=== PATIENT | male | born 1955 | race Caucasian/White ===

== ENCOUNTER 2016-12-09 15:34 | Emergency (ER) | payer OTHER ==
--- NOTE | 2016-12-09 16:56 | RAD ---
INDICATION: Right hip pain. COMPARISON: There are no prior studies available for comparison. TECHNIQUE: An AP view of the pelvis and frontal and lateral views of the right hip were obtained. FINDINGS: The bones are in normal alignment. No fracture is seen. There is mild bilateral osteoarthritic change in the hips. There are several surgical clips in the right inguinal region. IMPRESSION: MILD BILATERAL OSTEOARTHRITIC CHANGE IN THE HIPS.
--- NOTE | 2016-12-09 17:25 | UC ---
Hip/Pelvis Pain - HPI Summary HPI Summary: 61 yo male slipped on gravel 4 days ago landed on right buttock very uncomfortable with going up stairs/lifting right leg - History Of Current Complaint Chief Complaint: UCLowerExtremity Stated Complaint: HIP INJURY FROM FALL Time Seen by Provider: 12/09/16 16:29 Onset/Duration: Sudden Onset Timing: Constant Severity Initially: Moderate Severity Currently: Mild Pain Intensity: 4 - worse when sitting/laying/lifting leg Pain Scale Used: 0-10 Numeric Location: Discrete At: Character Of Pain: Aching, Spasmodic, Stiffness Aggravating Factor(s): Movement, Weight Bearing Alleviating Factor(s): Rest Associated Signs And Symptoms: Positive: Negative - Allergies/Home Medications Allergies/Adverse Reactions: Allergies Allergy/AdvReac Type Severity Reaction Status Date / Time No Known Allergies Allergy Verified 12/09/16 16:00 PMH/Surg Hx/FS Hx/Imm Hx Previously Healthy: Yes Endocrine History Of: Reports: Diabetes - BORDERLINE DIET CONTROLLED Cardiovascular History Of: Reports: Hypertension Denies: Pacemaker/ICD, Congestive Heart Failure GI/ History Of: Denies: Renal Disease Psychological History Of: Reports: Anxiety - pre-med for MRI - Surgical History Surgical History: Yes Surgery Procedure, Year, and Place: 95' left shoulder totator cuff repair. Leif Knee repair. heart pfo closure/ablation. hx of metal injury to eyes - cleared in 2007 but unable to find xray report now. As long as pt reports no new injury since that exam, Dr Padilla cleared the patient from the previous MRI - Family History Known Family History: Positive: Hypertension, Diabetes - Social History Alcohol Use: Occasionally Substance Use Type: None Smoking Status (MU): Former Smoker - Immunization History Most Recent Influenza Vaccination: 2012 Most Recent Tetanus Shot: unk Most Recent Pneumonia Vaccination: none Review of Systems Constitutional: Negative Skin: Negative Eyes: Negative ENT: Negative Respiratory: Negative Cardiovascular: Negative Gastrointestinal: Negative Genitourinary: Negative Motor: Negative Neurovascular: Negative Musculoskeletal: Arthralgia, Myalgia Neurological: Negative Psychological: Negative All Other Systems Reviewed And Are Negative: Yes Physical Exam Triage Information Reviewed: Yes Appearance: Well-Appearing, No Pain Distress, Well-Nourished Vital Signs: Initial Vital Signs Temp 97.9 F 12/09/16 15:57 Pulse 82 12/09/16 15:57 Resp 18 12/09/16 15:57 BP 141/84 12/09/16 15:57 Pulse Ox 96 12/09/16 15:57 Eyes: Positive: Conjunctiva Clear ENT: Positive: Hearing grossly normal. Negative: Nasal congestion, Nasal drainage, Trismus, Muffled/hoarse voice Neck: Positive: Supple, Nontender Respiratory: Positive: Lungs clear, Normal breath sounds, No respiratory distress Cardiovascular: Positive: RRR, No Murmur, Pulses Normal Abdomen Description: Positive: Nontender, Soft Neurological Exam: Normal Neurological: Positive: Alert, Muscle Tone Normal Psychological Exam: Normal Skin Exam: Normal Hip Injury Course/Dx - Course Course Of Treatment: pelvis stable. no midline delphine back tenderness - Differential Dx/Diagnosis Provider Diagnoses: right buttock contusion Discharge - Discharge Plan Condition: Stable Disposition: HOME Prescriptions: Naproxen [Naproxen 500 MG TABS] 500 mg PO BID PRN #30 tab PRN Reason: Pain Patient Education Materials: Contusion in Adults (ED) Referrals: Bienvenido Meier MD [Primary Care Provider] - 1 Week Additional Instructions: ice twice daily recheck with your MD in 4-7 days if not better Images Front/Back of Body, Lg (Benson): 1 - tender
[2016-12-09 17:48] VITALS: BP 131/95
== END 2016-12-09 17:43 | disposition home or self-care (01) ==
LOC: UCEAST 15:34
DX: S30.0XXA Contusion of lower back and pelvis, initial encounter (principal); W01.0XXA Fall on same level from slipping, tripping and stumbling without subsequent striking against object, initial encounter; R73.03 Prediabetes; I10 Essential (primary) hypertension; F41.9 Anxiety disorder, unspecified; Z87.891 Personal history of nicotine dependence
CPT/HCPCS: 99212; G0463

== ENCOUNTER 2018-08-17 23:27 | Emergency (ER) | payer OTHER ==
[2018-08-17] MEDS ORDERED: NS 0.9% 1000 ML* 1,000 ML IV ONE (23:43)
[2018-08-17] MEDS ORDERED: EPINEPHRINE 1 MG/ML 1 ML VIAL IM ONE (23:44)
[2018-08-17] MEDS ORDERED: diPHENhydraMINE IV* 50 MG/ML 1 ml VIAL (BENADRYL) IV ONE (23:45)
[2018-08-17] MEDS ORDERED: methylPREDNISolone 125 MG* 2 ML VIAL IV ONE (23:45)
[2018-08-17] MEDS ORDERED: Albuterol 0.5% CONC NEB.SOL* 5 MG/ML 20 ml BOT INH ONE (23:46)
--- NOTE | 2018-08-17 23:46 | ED ---
Allergic Reaction/Systemic - HPI Summary HPI Summary: This patient is a 62 year [facility] by with a chief complaint of possible allergic reaction since 1 hour ago. Patient states that he was just sitting and watching TV. Suddenly, patient noticed itching inside his mouth, which radiated to his hands and then his feet. There is not visible rash, but there is redness from itching. Patient additionally notes that his lips and tongue may be swollen. Patient states he presents to the ED because he thought that his throat may be closing up. The pain is rated 2 /10 in severity. Symptoms aggravated by nothing. Symptoms alleviated by nothing. Patient additionally notes mild SOB. - History of Current Complaint Chief Complaint: EDAllergicReaction Time Seen by Provider: 08/17/18 23:36 Hx Obtained From: Patient Onset/Duration: Started hours ago, Still Present Timing: Constant Severity Currently: None Pain Intensity: 2 Pain Scale Used: 0-10 Numeric Location: Diffuse Character: Swelling Aggravating Factor(s): Nothing Alleviating Factor(s): Nothing Associated Signs And Symptoms: Positive: Other: - itching, SOB - Allergies/Home Medications Allergies/Adverse Reactions: Allergies Allergy/AdvReac Type Severity Reaction Status Date / Time No Known Allergies Allergy Verified 12/09/16 16:00 Home Medications: Home Medications celeCOXIB CAP* [CeleBREX CAP*] 200 mg PO DAILY 08/18/18 [History Confirmed 08/18] PMH/Surg Hx/FS Hx/Imm Hx Previously Healthy: No Endocrine/Hematology History: Reports: Hx Diabetes - BORDERLINE DIET CONTROLLED Cardiovascular History: Reports: Hx Coronary Artery Disease, Hx Hypertension Denies: Hx Congestive Heart Failure, Hx Pacemaker/ICD History: Denies: Hx Renal Disease Musculoskeletal History: Reports: Hx Arthritis, Hx Orthopedic Injury - left rotator cuff, shefali knee repair Sensory History: Reports: Hx Contacts or Glasses Denies: Hx Hearing Aid Opthamlomology History: Reports: Hx Contacts or Glasses Neurological History: Reports: Other Neuro Impairments/Disorders - Transient Global Amnesia 6yrs ago Psychiatric History: Reports: Hx Anxiety - pre-med for MRI Denies: Hx Panic Disorder - Surgical History Surgery Procedure, Year, and Place: left shoulder totator cuff repair. Shefali Knee repair. heart pfo closure/ablation. hx of metal injury to eyes - cleared in 2007 but unable to find xray report now. As long as pt reports no new injury since that exam, Dr Padilla cleared the patient from the previous MRI Infectious Disease History: No Infectious Disease History: Denies: Traveled Outside the [place] in Last 30 Days - Family History Known Family History: Positive: Hypertension, Diabetes - Social History Lives: With Family Alcohol Use: Occasionally Hx Substance Use: No Substance Use Type: Reports: None Hx Tobacco Use: Yes Smoking Status (MU): Former Smoker Review of Systems Negative: Fever Positive: Shortness Of Breath Positive: Other - Itching, swelling All Other Systems Reviewed And Are Negative: Yes Physical Exam - Summary Physical Exam Summary: Appearance: Well-appearing, Well-nourished, lying in bed comfortably Skin: Warm, dry, no obvious rash, scattered itchiness Eyes: sclera anicteric, no conjunctival pallor ENT: mucous membranes moist, pharynx appears normal, Symmetric swelling of tongue and lips Neck: Supple, nontender Respiratory: Mild wheezing, chest tightness Cardiovascular: Normal S1, S2. No murmurs. Normal distal pulses in tibial and radial bilaterally. Abdomen: Soft, nontender, normal active bowel sounds present Musculoskeletal: Normal, Strength/ROM Intact Neurological: A&Ox3, awake and alert, mentation is normal, speech is fluent and appropriate Psychiatric: affect is normal, does not appear anxious or depressed Triage Information Reviewed: Yes Vital Signs On Initial Exam: Initial Vitals Temp Pulse Resp BP Pulse Ox 98 F 89 20 177/94 98 08/17/18 23:29 08/17/18 23:29 08/17/18 23:29 08/17/18 23:29 08/17/18 23:29 Vital Signs Reviewed: Yes Diagnostics - Vital Signs Vital Signs Temp Pulse Resp BP Pulse Ox 08/17/18 23:29 98 F 89 20 177/94 98 - Laboratory Result Diagrams: 08/17/18 23:53 08/17/18 23:53 Lab Statement: Any lab studies that have been ordered have been reviewed, and results considered in the medical decision making process. - Radiology CXR Radiology Interpretation Completed By: ED Physician Summary of Radiographic Findings: CXR reveals No acute disease. ED physician has reviewed this radiology report. - EKG 2353 Cardiac Rate: NL EKG Rhythm: Sinus Rhythm - 86 BPM Summary of EKG Findings: An EKG, taken 2353, reveals NSR (86 BPM), P waves, QRS complex, and T waves are within normal limits, T waves and intervals are normal , no ischemic changes. This is a normal EKG. Re-Evaluation - Re-Evaluation First Eval Re-Evaluation Time: 00:38 Change: Improved Comment: Wheezing and pruritus has resolved, but patient feels somewhat anxious and fidgety Allergic Reaction Course/Dx - Course Assessment/Plan: This patient is a 62 year old male presenting to [facility] accompanied by with a chief complaint of possible allergic reaction since 1 hour ago. Patient states that he was just sitting and watching TV. Suddenly, patient noticed itching inside his mouth, which radiated to his hands and then his feet. There is not visible rash, but there is redness from itching. Patient additionally notes that his lips and tongue may be swollen. Patient states he presents to the ED because he thought that his throat may be closing up. An EKG , taken 2353, reveals NSR (86 BPM), P waves, QRS complex, and T waves are within normal limits, T waves and intervals are normal, no ischemic changes. This is a normal EKG. CXR reveals No acute disease. ED physician has reviewed this radiology report. Bloodwork Obtained. In the ED course the patient was given albuterol, bendryl, epinephrine, Ativan, solu-medrol, NS 0.9% IV bolus. Patient will be discharged with a dx of anaphylaxis. Patient is advised to follow up with PCP in 3 days.The patient is agreeable with this plan. - Diagnoses Provider Diagnoses: Anaphylaxis Discharge - Sign-Out/Discharge Documenting (check all that apply): Patient Departure - Discharge Plan Condition: Improved Disposition: HOME Prescriptions: EPINEPHrine [Epipen 2-Isidro] 0.3 mg IM ONCE PRN #1 inj PRN Reason: Allergy Symptoms predniSONE [Prednisone 20 MG TAB] 40 mg PO DAILY 5 Days #10 tablet Patient Education Materials: Anaphylaxis (ED) Referrals: Bienvenido Meier MD [Primary Care Provider] - Additional Instructions: Followup with your doctor or an compensation specialist is important as you may need further testing to confirm my suspicion that the celebrex precipitated tonight' s reaction. In the meantime you should avoid celebrex and any medication in that family, including motrin and naprosyn. Take the prednisone for the next 5 days, and get benadryl to take if the itching comes back. If you develop trouble breathing again, administer the epinephrine and come right to the hospital or call 911 for an ambulance. - Attestation Statements Document Initiated by Keira: Yes Documenting Scribe: Tiny Munson Provider For Whom Kiera is Documenting (Include Credential): Barrett Lama MD Scribe Attestation: Tiny Thurston, scribed for Barrett Lama MD on 08/18/18 at 0458. Status of Scribe Document: Ready
[2018-08-17 23:59] LABS: ABS Basophils 0 10^3/ul (0-0.2); ABS Eosinophils 0.1 10^3/ul (0-0.6); ABS Lymphocytes 2.4 10^3/ul (1.0-4.8); ABS Monocytes 0.4 10^3/ul (0-0.8); ABS Neutrophils 3.3 10^3/ul (1.5-7.7); ABS Nucleated RBC 0 10^3/ul; Eosinophil % 1.6 %; Hematocrit 42 % (42-52); Hemoglobin 14.4 g/dl (14.0-18.0); Mean Corpuscular HGB Conc 35 g/dl (31-36); Mean Corpuscular Hemoglobin 30 pg (27-31); Mean Corpuscular Volume 85 fL (80-94); Mean Platelet Volume 7.2 fL (7.4-10.4); Nucleated Red Blood Cells % 0.1; Platelet Count 285 10^3/ul (150-450); Red Cell Distribution Width 14 % (10.5-15); White Blood Count 6.2 10^3/ul (3.5-10.8)
[2018-08-18] MEDS ORDERED: Albuterol/Ipratropium NEB.SOL* Albuterol 2.5 MG/Ipratropium 0.5 MG 3 ML ONE (00:04)
[2018-08-18] MEDS ORDERED: Albuterol/Ipratropium NEB.SOL* Albuterol 2.5 MG/Ipratropium 0.5 MG 3 ML INH ONE (00:11)
[2018-08-18 00:22] LABS: Albumin 3.9 g/dL (3.2-5.2); Albumin/Globulin Ratio 1.4 (1-3); BUN/Creatinine Ratio 16.5 (8-20); Calcium 9.4 mg/dL (8.6-10.3); EGFR Non-African American 64.2 (>60); Globulin 2.8 g/dL (2-4); Total Bilirubin 0.4 mg/dL (0.2-1.0); Total Protein 6.7 g/dL (6.4-8.9)
[2018-08-18] MEDS ORDERED: LORazepam INJ* 2 MG/ML 1 ML VIAL IV PUSH ONE (00:37)
[2018-08-18 05:06] VITALS: BP 119/58
== END 2018-08-18 05:04 | disposition home or self-care (01) ==
LOC: ED 23:27
DX: T78.2XXA Anaphylactic shock, unspecified, initial encounter (principal); R06.02 Shortness of breath; Z87.891 Personal history of nicotine dependence; I25.10 Atherosclerotic heart disease of native coronary artery without angina pectoris; I10 Essential (primary) hypertension
CPT/HCPCS: 36415; 71045; 80053; 83605; 84484; 85025; 93005; 96361; 96372; 96374; 96375; 99284; A9270-GY; J1200; J2060; J2930

== ENCOUNTER 2019-10-09 15:42 | Emergency (ER) | payer MEDICARE, OTHER ==
[2019-10-09 16:02] VITALS: BP 154/92
--- NOTE | 2019-10-09 16:07 | UC ---
Ear Complaint HPI - HPI Summary HPI Summary: 64 y/o male presents to the urgent care accompany by daughter c/o sinus congestion, clear nasal discharge body aches, low grade fever for the past 2 days. This morning, he developed left ear pain and pressure w/ decrease hearing. He states yesterday he though he had fever of 106F, But on the way to the ER he realized his thermometer was not working and his temp was only 101F. He took Tylenol PO and temp decrease. Pt states ear pain is 8/10. Pt denies dizziness, LINDO, SOB, chest pain,abdominal pain, N/V/d. - History of Current Complaint Chief Complaint: UCEar Stated Complaint: EAR COMPLAINT Time Seen by Provider: 10/09/19 16:06 Hx Obtained From: Patient Onset/Duration: Gradual Onset, Lasting Days - 2 days nasal congestion, Still Present, Worse Since - today w/ left ear pain Severity Initially: Mild Severity Currently: Moderate Pain Intensity: 8 - left ear pain Pain Scale Used: 0-10 Numeric Alleviating Factors: OTC Meds Associated Signs/Symptoms: Positive: URI Symptoms - Allergies/Home Medications Allergies/Adverse Reactions: Allergies Allergy/AdvReac Type Severity Reaction Status Date / Time gemfibrozil Allergy Anaphylatic Verified 10/09/19 16:02 Shock Home Medications: Home Medications Acetaminophen [Tylenol] 2 tab PO ONCE PRN 10/09/19 [History Confirmed 10/09/19] Fenofibrate Nanocrystallized [Tricor] 145 mg PO DAILY 10/09/19 [History Confirmed 10/09/19] Ibuprofen TAB* [Advil TAB*] 400 mg PO Q6H PRN 10/09/19 [History Confirmed ] PMH/Surg Hx/FS Hx/Imm Hx Previously Healthy: Yes Endocrine History: Dyslipidemia Cardiovascular History: Hypertension, Atrial Fibrillation GI/ History: Gastroesophageal Reflux - Surgical History Surgical History: Yes Surgery Procedure, Year, and Place: left shoulder Rotator cuff repair VASECTOMY. Leif Knee repair. heart pfo closure/ablation 2004. hx of metal injury to eyes - cleared in 2007 but unable to find xray report now. As long as pt reports no new injury since that exam, Dr Padilla cleared the patient from the previous MRI - Family History Known Family History: Positive: Hypertension, Diabetes - Social History Occupation: Retired Lives: With Family Alcohol Use: Rare Substance Use Type: None Smoking Status (MU): Former Smoker When Did the Patient Quit Smoking/Using Tobacco: 40+ years ago - Immunization History Most Recent Influenza Vaccination: 2013 Most Recent Tetanus Shot: unk Most Recent Pneumonia Vaccination: none Review of Systems All Other Systems Reviewed And Are Negative: Yes Constitutional: Positive: Fever, Chills, Other - body aches Skin: Positive: Negative Eyes: Positive: Negative ENT: Positive: Sore Throat, Ear Ache - left ear pain, Nasal Discharge - clear, Sinus Congestion, Other - moderate PND Respiratory: Positive: Cough - dry Cardiovascular: Positive: Negative Gastrointestinal: Positive: Negative Genitourinary: Positive: Negative Motor: Positive: Negative Neurovascular: Positive: Negative Musculoskeletal: Positive: Myalgia Neurological: Positive: Negative Psychological: Positive: Negative Is Patient Immunocompromised?: No Physical Exam - Summary Physical Exam Summary: VITAL SIGNS: Reviewed. GENERAL: Patient is a well developed and nourished obese male who is sitting comfortably in the examining table. Patient is not in any acute respiratory distress. HEAD AND FACE: No signs of trauma. No ecchymosis, hematomas or skull depressions. No sinus tenderness. EYES: PERRLA, EOMI x 2, No injected conjunctiva, no nystagmus. No photophobia. EARS: Hearing grossly intact. Left external ear canal impacted cerumen, unable to visualize LF TM, RT external ear canal clear, RT TM WNL. MOUTH: Positive pharynx with mild erythema, no exudates, No B/L tonsillar enlargement , no exudate. Uvula in midline. edematous nasal mucosa w/ clear nasal discharge, clear PND NECK: Supple, trachea is midline, Positive anterior cervical lymphadenopathy, no JVD, no carotid bruit, no c-spine tenderness, neck with full ROM. No meningeal signs, no Kernig's or brudzinskis signs. CHEST: Symmetric, no tenderness at palpation LUNGS: Clear to auscultation bilaterally. No wheezing or crackles. CVS: Regular rate and rhythm, S1 and S2 present, no murmurs or gallops appreciated. ABDOMEN: Soft, non-tender. No signs of distention. No rebound no guarding, and no masses palpated. Bowel sounds are normal. EXTREMITIES: FROM in all major joints, no edema, no cyanosis or clubbing. NEURO: Alert and oriented x 3. No acute neurological deficits. Pt follows commands. SKIN: Dry and warm Triage Information Reviewed: Yes Vital Signs: Initial Vital Signs Temp 98.2 F 10/09/19 15:57 Pulse 72 10/09/19 15:57 Resp 16 10/09/19 15:57 BP 154/92 10/09/19 15:57 Pulse Ox 99 10/09/19 15:57 Ear Complaint Course/Dx - Course Course Of Treatment: 64 y/o male presents to the urgent care accompany by daughter c/o sinus congestion, clear nasal discharge body aches, low grade fever for the past 2 days. This morning, he developed left ear pain and pressure w/ decrease hearing. He states yesterday he though he had fever of 106F, But on the way to the ER he realized his thermometer was not working and his temp was only 101F. He took Tylenol PO and temp decrease. Pt states ear pain is 8/10. Pt denies dizziness, LINDO, SOB, chest pain,abdominal pain, N/V/d. Hx obtained. Pt w/ left external ear canal impacted w/ cerumen and left anterior cervical and preauricular lymphadenopathy on examination. Rapid Influenza A&B: negative. Left ear irrigation ordered. Irrigation performed by Nurse. Pt tolerated well procedure w/o any adverse effect. Left external w/ erythema and yellowish purulent discharge, LF TM injected w/ erythema, no light reflex, no perforation. Pt will be Tx for Otitis externa and Media. Pt Rx Amoxicillin PO and Cortisporin otic drops. Advised to continue w/ Advil PO for alleviate otalgia. Pt advised if not improvement of symptoms in 2-3 days to return to the clinic or f/u w/ her PCP for further treatment.Pt's BP is elevated today advised to decrease salt in diet, monitor BP and f/u with PCP if BP continues to be elevated for further management. Pt understood and agreed w/ plan of care. - Differential Dx/Diagnosis Differential Diagnosis/HQI/PQRI: Cerumen Impaction, Otitis Externa, Otitis Media , Perforated TM, Pharyngitis, URI, Other - influenza Provider Diagnosis: Left otitis media, Left otitis externa, Uncontrolled hypertension Discharge ED - Sign-Out/Discharge Documenting (check all that apply): Patient Departure - d/c home All imaging exams completed and their final reports reviewed: No Studies - Discharge Plan Condition: Stable Disposition: HOME Prescriptions: Amoxicillin PO (*) [Amoxicillin 875 MG (*)] 875 mg PO BID #20 tab Neomyc/Polym/HC 1% OTIC SUSP* [Cortisporin Otic Susp 1%*] 4 drop LEFT EAR TID # 1 btl Patient Education Materials: Ear Infection (ED) Referrals: Bienvenido Meier MD [Primary Care Provider] - 3 Days Additional Instructions: 1- Please take the full course of the antibiotic to avoid resistance.Take yogurts w/ probiotics or Culturelle to protect your GI system 2-Please take ibuprofen PO q6-8hrs prn as instructed after meals to alleviate pain and swelling. Increase fluid intake, eat well, rest and avoid strenuous exercise 3- Please apply Cortisporin otic drops as directed to alleviate left otitis externa 4-If symptoms do not improve or worsen please return to the urgent care or f/u with your PCP for further evaluation and treatment. 5- Rapid influenza A&B: negative. 6- Your BP is elevated today advised to decrease salt in diet, monitor BP and f/ u with PCP in 3 days for further management. - Billing Disposition and Condition Condition: STABLE Disposition: Home
[2019-10-09 16:36] LABS: Influenza A Molecular Negative (Negative); Influenza B Molecular Negative (Negative)
== END 2019-10-09 17:00 | disposition home or self-care (01) ==
LOC: UCEAST 15:42
DX: H66.92 Otitis media, unspecified, left ear (principal); H60.92 Unspecified otitis externa, left ear; I10 Essential (primary) hypertension; J02.9 Acute pharyngitis, unspecified; M79.10 Myalgia, unspecified site; E78.5 Hyperlipidemia, unspecified; K21.9 Gastro-esophageal reflux disease without esophagitis; Z79.82 Long term (current) use of aspirin; Z79.899 Other long term (current) drug therapy; Z88.8 Allergy status to other drugs, medicaments and biological substances; Z87.891 Personal history of nicotine dependence
CPT/HCPCS: 99213; G0463

== ENCOUNTER 2019-10-11 07:27 | Emergency (ER) | payer MEDICARE, OTHER ==
[2019-10-11] MEDS ORDERED: Meclizine TAB* 12.5 MG PO ONE (07:55)
[2019-10-11 08:18] LABS: ABS Basophils 0.1 10^3/ul (0-0.2); ABS Eosinophils 0.1 10^3/ul (0-0.6); ABS Lymphocytes 1.4 10^3/ul (1.0-4.8); ABS Monocytes 1.1 10^3/ul (0-0.8); ABS Neutrophils 6.9 10^3/ul (1.5-7.7); Eosinophil % 0.9 %; Hematocrit 38 % (42-52); Hemoglobin 13.4 g/dL (14.0-18.0); Lymphocyte % 14.6 %; Mean Corpuscular HGB Conc 36 g/dL (31-36); Mean Corpuscular Hemoglobin 30 pg (27-31); Mean Corpuscular Volume 85 fL (80-94); Mean Platelet Volume 7.7 fL (7.4-10.4); Nucleated Red Blood Cells % 0.1; Platelet Count 194 10^3/uL (150-450); Red Blood Count 4.47 10^6 /uL (4.18-5.48); Red Cell Distribution Width 14 % (10-15); White Blood Count 9.4 10^3/uL (3.5-10.8)
[2019-10-11 08:36] LABS: Albumin 3.8 g/dL (3.2-5.2); Albumin/Globulin Ratio 1.3 (1-3); BUN/Creatinine Ratio 18.1 (8-20); Calcium 8.9 mg/dL (8.6-10.3); EGFR African American 97.5 (>60); EGFR Non-African American 80.5 (>60); Potassium 3.6 mmol/L (3.5-5.0); Total Bilirubin 0.5 mg/dL (0.2-1.0); Total Protein 6.8 g/dL (6.4-8.9); Troponin I 0.01 ng/mL (<0.03)
[2019-10-11 09:41] VITALS: BP 151/104
--- NOTE | 2019-10-11 10:17 | ED ---
Throat Pain/Nasal Congestion - HPI Summary HPI Summary: This patient is a 64-year-old otherwise healthy male recently diagnosed with left ear infection presenting to the ED with acute onset dizziness while driving today. No history of dizziness. Denies any cardiac history. He states several days ago his left ear started hurting. He went to urgent care where he was diagnosed with left sided otitis externa. He does endorse drainage from the area which is red and yellow tinted serous fluid. 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 He also had nausea without vomiting. He states he was recently worked up for a gallbladder surgery and had EKG, stress test and echo completed last week. Patient has been denying chest pain or shortness of breath. He denies any abdominal pain at this time. No urinary symptoms or back pain. He denies any headache. He states intermittently when he stands up too quickly he will get only slightly dizzy, however he is on a beta sergo. He states this definitely felt different than his previous mild dizziness episodes. On arrival into the ED, patient has felt much improved. He is endorsing his dizziness at a 5/10, previously is 10/10 prior to arrival. Symptoms are worse with head movement from side to side. No worsening dizziness with flexion and extension of the neck. No neck pain bilaterally. No visual changes. No confusion or memory loss. - History of Current Complaint Chief Complaint: EDDizziness Time Seen by Provider: 10/11/19 07:45 Hx Obtained From: Patient Onset/Duration: Sudden Onset Severity: Severe Associated Signs And Symptoms: Positive: Negative - Epiglottits Risk Factors Epiglottis Risk Factors: Negative - Allergies/Home Medications Allergies/Adverse Reactions: Allergies Allergy/AdvReac Type Severity Reaction Status Date / Time gemfibrozil Allergy Anaphylatic Verified 10/11/19 07:46 Shock PMH/Surg Hx/FS Hx/Imm Hx Previously Healthy: Yes Endocrine/Hematology History: Denies: Hx Diabetes, Hx Thyroid Disease Cardiovascular History: Reports: Hx Coronary Artery Disease, Hx Hypercholesterolemia, Hx Hypertension Denies: Hx Congestive Heart Failure, Hx Pacemaker/ICD Respiratory History: Denies: Hx Asthma, Hx Chronic Obstructive Pulmonary Disease (COPD) GI History: Denies: Hx Ulcer History: Denies: Hx Renal Disease Musculoskeletal History: Reports: Hx Arthritis, Hx Orthopedic Injury - left rotator cuff, shefali knee repair Sensory History: Reports: Hx Contacts or Glasses Denies: Hx Hearing Aid Opthamlomology History: Reports: Hx Contacts or Glasses Neurological History: Reports: Other Neuro Impairments/Disorders - Transient Global Amnesia 6yrs ago Psychiatric History: Reports: Hx Anxiety - pre-med for MRI Denies: Hx Panic Disorder - Surgical History Surgery Procedure, Year, and Place: ' left shoulder Rotator cuff repair VASECTOMY. Shefali Knee repair. heart pfo closure/ablation 2004. hx of metal injury to eyes - cleared in 2007 but unable to find xray report now. As long as pt reports no new injury since that exam, Dr Padilla cleared the patient from the previous MRI - Immunization History Hx Pertussis Vaccination: No Immunizations Up to Date: Yes Infectious Disease History: No Infectious Disease History: Denies: Hx Hepatitis, Hx Human Immunodeficiency Virus (HIV), Traveled Outside the [place] in Last 30 Days - Family History Known Family History: Positive: Hypertension, Diabetes - Social History Occupation: Unemployed Lives: With Family Alcohol Use: Rare Hx Substance Use: No Substance Use Type: Reports: None Hx Tobacco Use: Yes Smoking Status (MU): Former Smoker Review of Systems Negative: Fever, Chills, Fatigue, Skin Diaphoresis Negative: Blurred Vision, Diplopia, Drainage, Erythema Negative: Palpitations, Chest Pain Negative: Shortness Of Breath, Cough Genitourinary: Negative Positive: see HPI Negative: Rash, Bruising Neurological: Other - dizziness Negative: Headache, Weakness, Paresthesia, Syncope Negative: Anxious, Depressed All Other Systems Reviewed And Are Negative: Yes Physical Exam Triage Information Reviewed: Yes Vital Signs On Initial Exam: Initial Vitals Temp Pulse Resp BP Pulse Ox 97.9 F 79 16 169/113 95 10/11/19 07:28 10/11/19 07:28 10/11/19 07:28 10/11/19 07:28 10/11/19 07:28 Vital Signs Reviewed: Yes Appearance: Positive: Well-Appearing, Well-Nourished Skin: Positive: Warm, Skin Color Reflects Adequate Perfusion Head/Face: Positive: Normal Head/Face Inspection Eyes: Positive: EOMI, UMM, Conjunctiva Clear ENT: Positive: Pharynx normal, TM bulging, TM red - with drainage, Other - decreased hearing in the L ear. Negative: Pharyngeal erythema, Nasal congestion , Nasal drainage, Tonsillar swelling, Tonsillar exudate, Dental tenderness, Sinus tenderness, Uvula midline Neck: Positive: Supple, No Lymphadenopathy Respiratory/Lung Sounds: Positive: Clear to Auscultation, Breath Sounds Present Cardiovascular: Positive: RRR, Pulses are Symmetrical in both Upper and Lower Extremities. Negative: Leg Edema Left, Leg Edema Right Musculoskeletal: Positive: Normal, Strength/ROM Intact Neurological: Positive: Speech Normal Psychiatric: Positive: Normal, Affect/Mood Appropriate AVPU Assessment: Alert - Mane Coma Scale Best Eye Response: 4 - Spontaneous Best Motor Response: 6 - Obeys Commands Best Verbal Response: 5 - Oriented Coma Scale Total: 15 Procedures - Sedation Patient Received Moderate/Deep Sedation with Procedure: No Diagnostics - Vital Signs Vital Signs Temp Pulse Resp BP Pulse Ox 10/11/19 09:40 97.3 F 75 14 151/104 100 10/11/19 09:14 73 15 156/90 99 10/11/19 09:00 77 15 98 10/11/19 08:44 74 15 139/92 95 10/11/19 08:14 72 20 137/91 95 10/11/19 08:00 17 10/11/19 07:43 71 14 171/99 94 10/11/19 07:28 97.9 F 79 16 169/113 95 - Laboratory Lab Results: Lab Results 10/11/19 10/11/19 Range/Units 08:05 08:05 WBC 9.4 (3.5-10.8) 10^3/uL RBC 4.47 (4.18-5.48) 10^6 /uL Hgb 13.4 L (14.0-18.0) g/dL Hct 38 L (42-52) % MCV 85 (80-94) fL MCH 30 (27-31) pg MCHC 36 (31-36) g/dL RDW 14 (10-15) % Plt Count 194 (150-450) 10^3/uL MPV 7.7 (7.4-10.4) fL Neut % (Auto) 72.5 % Lymph % (Auto) 14.6 % Stanley % (Auto) 11.4 % Eos % (Auto) 0.9 % Baso % (Auto) 0.6 % Absolute Neuts (auto) 6.9 (1.5-7.7) 10^3/ul Absolute Lymphs (auto) 1.4 (1.0-4.8) 10^3/ul Absolute Monos (auto) 1.1 H (0-0.8) 10^3/ul Absolute Eos (auto) 0.1 (0-0.6) 10^3/ul Absolute Basos (auto) 0.1 (0-0.2) 10^3/ul Absolute Nucleated RBC 0.0 10^3/ul Nucleated RBC % 0.1 Sodium 135 (135-145) mmol/L Potassium 3.6 (3.5-5.0) mmol/L Chloride 103 (101-111) mmol/L Carbon Dioxide 24 (22-32) mmol/L Anion Gap 8 (2-11) mmol/L BUN 17 (6-24) mg/dL Creatinine 0.94 (0.67-1.17) mg/dL Est GFR ( Amer) 97.5 (>60) Est GFR (Non-Af Amer) 80.5 (>60) BUN/Creatinine Ratio 18.1 (8-20) Glucose 224 H (70-100) mg/dL Calcium 8.9 (8.6-10.3) mg/dL Total Bilirubin 0.50 (0.2-1.0) mg/dL AST 20 (13-39) U/L ALT 31 (7-52) U/L Alkaline Phosphatase 56 (34-104) U/L Troponin I 0.01 (<0.03) ng/mL Total Protein 6.8 (6.4-8.9) g/dL Albumin 3.8 (3.2-5.2) g/dL Globulin 3.0 (2-4) g/dL Albumin/Globulin Ratio 1.3 (1-3) Result Diagrams: 10/11/19 08:05 10/11/19 08:05 Lab Statement: Any lab studies that have been ordered have been reviewed, and results considered in the medical decision making process. EENT Course/Dx - Course Course Of Treatment: Patient is evaluated for dizziness which occurred this morning as well as left sided ear pain/infection which was diagnosed 2 days ago. He is currently on amoxicillin as well as eardrops for this. He continues to have drainage from the ear. Patient appears well on arrival. Denies any dizziness currently. EKG obtained immediately on arrival. NSR. Movement of his head [id number] and ftsrm-hl-avqj illicits dizziness. No worsening symptoms with flexion or extension of the neck. No carotid bruits noted. No neck pain. No posterior cervical spine tenderness. No headache currently. No nystagmus noted. Neuro exam WNL. Patient was given meclizine with good improvement. Currently rating his dizziness as a 2/10, only with movement. Patient ambulating well. EOMI/PERRLA. Lungs CTA, RRR. There is serosanguineous fluid drainage from the left ear consistent with an otitis externa. Labs obtained are WNL. Vital signs are stable and patient remained afebrile. As patient's symptoms have improved, he will be discharged with dizziness, likely secondary to left-sided ear infection/fluid buildup. He will remain on his amoxicillin. He is encouraged to follow up with his PCP tomorrow for a recheck. - Differential Diagnoses Differential Diagnoses: Other - era infection, otitis media, dizziness, Mnire' s, labyrinthitis - Diagnoses Provider Diagnoses: Otitis externa Discharge ED - Sign-Out/Discharge Documenting (check all that apply): Patient Departure - Discharge Plan Condition: Stable Disposition: HOME Prescriptions: Meclizine TAB* [Antivert 12.5 TAB*] 25 mg PO TID PRN #20 tab MDD 3 PRN Reason: Dizziness Ondansetron ODT TAB* [Zofran 4 MG Odt TAB*] 4 mg PO Q6H PRN #12 tab.odt MDD 4 PRN Reason: Nausea Patient Education Materials: Dizziness (ED) Referrals: Bienvenido Meier MD [Primary Care Provider] - Additional Instructions: Please follow up with Dr Meier Please call surgeons office today as well for a follow up/information Continue your antibiotics as prescribed - Billing Disposition and Condition Condition: STABLE Disposition: Home
== END 2019-10-11 09:40 | disposition home or self-care (01) ==
LOC: ED 07:27
DX: H60.92 Unspecified otitis externa, left ear (principal); I25.10 Atherosclerotic heart disease of native coronary artery without angina pectoris; E78.00 Pure hypercholesterolemia, unspecified; I10 Essential (primary) hypertension; Z98.52 Vasectomy status; Z87.891 Personal history of nicotine dependence; Z88.8 Allergy status to other drugs, medicaments and biological substances
CPT/HCPCS: 36415; 80053; 84484; 85025; 93005; 99283; A9270-GY

== ENCOUNTER 2019-10-30 09:51 | Emergency (ER) | payer MEDICARE, OTHER ==
--- OUTSIDE RECORDS SUMMARY | 2019-10-30 10:19 | XMS REPORT | Continuity of Care Document ---
:1955 External Reference #:[id number] Author Name MARCELINO Lehman (transmitted by agent of provider Victor Manuel Marie) Address [address] [place] [address] [address] [place] [address] Problems Description No Information Available Social History Type Date Description Comments Sex Unknown ETOH Use Rarely consumes beer Tobacco Use Start: Unknown End: Patient is a former quit over 40 yrs Unknown smoker ago Recreational Drug Use Denies Drug Use Smoking Status Reviewed: 10/21/19 Patient is a former quit over 40 yrs smoker ago Exercise Type/Frequency Exercises regularly Reported walks 1 mile daily Allergies, Adverse Reactions, Alerts Active Allergies Reaction Severity Comments Date Gemfibrozil cough, palpitations swelling 12/14/2009 Inactive Allergies NKDA 10/05/2004 Medications Active Medications SIG Qnty Indications Ordering Provider Date [place] K80.20 Paco Lamar 10/21/2019 5-325mg MARCELINO Walters Tablets Lipitor one tab by mouth Alexis George, 10/11/2015 20mg every night at M.D. Tablets bedtime Aspirin 1 po qd 90units Alexis George, 09/11/2009 81mg M.D. Chewtabs Metoprolol Tartrate 1 tab po bid 60tabs Unknown 100mg Tablets Fenofibrate 1 tablet daily Unknown 145mg Omeprazole 1 capsule daily Unknown 40mg Losartan Potassium Take One Tablet Unknown By Mouth Every 25mg Tablets Day Prednisone taper as Unknown 20mg directed Tablets Fluticasone 2 sprays each Unknown Propionate nostril daily 50mcg/Act Suspension Medications Administered in Office Medication SIG Qnty Indications Ordering Provider Date Inj, Regadenoson, 0.1 MG Bairon Riley, DO [facility]ACC 06/19/2017 Injection Technetium TC 99M Bairon Raleigh Riley, DO [facility] 06/19/2017 Tetrofosmin, Per Unit Dose Up To 40 Millicuries Injection Immunizations Description No Information Available Vital Signs Date Vital Result Comment 10/21/2019 11:05am Height 68 inches 5'8" Weight 232.00 lb Heart Rate 66 /min BP Systolic Sitting 142 mmHg BP Diastolic Sitting 96 mmHg Respiratory Rate 16 /min Body Temperature 97.4 F BMI (Body Mass Index) 35.3 kg/m2 09/29/2019 8:52am Height 68 inches 5'8" Heart Rate 68 /min radial,regular BP Systolic Sitting 148 mmHg Ra,lg cuff BP Diastolic Sitting 108 mmHg Ra,lg cuff BP Systolic Standing 136 mmHg LA sitting, lg cuff BP Diastolic Standing 96 mmHg LA sitting, lg cuff BP Systolic Lying Down 136 mmHg LA sitting, reg cuff BP Diastolic Lying Down 92 mmHg LA sitting, reg cuff Results Description No Information Available Procedures Date Code Description Status 10/04/2019 55354 Treadmill Interp/Report Only Completed 10/04/2019 67864 Stress Test Supervsn W/Out I/R Completed 09/29/2019 92400 EKG Tracing & Interpretation Completed 09/29/2019 77451 EKG Tracing & Interpretation Completed 09/28/2019 22310 EKG Tracing & Interpretation Completed Medical Devices Description No Information Available Encounters Type Date Location Provider Dx Diagnosis Office Visit 09/29/2019 [facility] Alexis Hoover R94.31 Abnormal 2:00p Daisy George electrocardiogram [ECG] [EKG] I10 Essential (primary) hypertension Office Visit 09/28/2019 10:40a [facility] Alexis Hoover I10 Essential (primary) Daisy George hypertension Q21.1 Atrial septal defect E78.00 Pure hypercholesterolemia, unspecified R94.31 Abnormal electrocardiogram [ECG] [EKG] K80.20 Calculus of gallbladder w/o cholecystitis w/o obstruction Office Visit 09/27/2019 [facility] Prabhakar Guillen, K80.20 [facility] 8:30a [facility] gallbladder w/o [employer] cholecystitis w/o obstruction K44.9 Diaphragmatic hernia without obstruction or gangrene Assessments Date Code Description Provider 10/21/2019 K80.20 Calculus of gallbladder without MARCELINO Lehman cholecystitis without obstruction 10/21/2019 Z01.818 Encounter for other preprocedural MARCELINO Lehman examination 10/14/2019 K80.20 Calculus of gallbladder without Prabhakar Guillen MD, ROSE cholecystitis without obstruction 10/04/2019 R94.31 Abnormal electrocardiogram [ECG] [EKG] Tristian Whitlock M.D. 09/29/2019 R94.31 Abnormal electrocardiogram [ECG] [EKG] Alexis George M.D. 09/29/2019 I10 Essential (primary) hypertension Alexis George M.D. 09/29/2019 R94.31 Abnormal electrocardiogram [ECG] [EKG] Nurse Visit cc 09/29/2019 I10 Essential (primary) hypertension Nurse Visit cc 09/29/2019 E78.00 Pure hypercholesterolemia, unspecified Nurse Visit 09/29/2019 K80.20 Calculus of gallbladder without Nurse Visit cholecystitis without obstruction 09/28/2019 I10 Essential (primary) hypertension Alexis George M.D. 09/28/2019 Q21.1 Atrial septal defect Alexis George M.D. 09/28/2019 E78.00 Pure hypercholesterolemia, unspecified Alexis George M.D. 09/28/2019 R94.31 Abnormal electrocardiogram [ECG] [EKG] Alexis George M.D. 09/28/2019 K80.20 Calculus of gallbladder without Alexis George M.D. cholecystitis without obstruction 09/27/2019 K80.20 Calculus of gallbladder without Prabhakar Guillen MD, FACS cholecystitis without obstruction 09/27/2019 K44.9 Diaphragmatic hernia without obstruction Prabhakar Guillen MD, FACS or gangrene Plan of Treatment Future Appointment(s):11/04/2019 7:45 am - Prabhakar Guillen MD, FACS at [facility]11/11/2019 11:30 am - MARCELINO Lehman at [facility]10/21/2019 - Paco Walters, PAK80.20 Calculus of gallbladder without cholecystitis without obstructionNew Medication:[place] 5-325 mg -Z01.818 Encounter for other preprocedural examination Functional Status Description No Information Available Mental Status Description No Information Available Referrals Refer to Reason for Referral Status Appt Date Alexis George MD Closed 09/28/[address] [place] [address] [address] [place] [address] [phone]
--- OUTSIDE RECORDS SUMMARY | 2019-10-30 10:19 | XMS REPORT | Continuity of Care Document ---
:1955 External Reference #:[id number] Author Name DEMETRIUS Francisco Address [address] [place] [address] Care Team Providers Name Role Phone Gallo Melendez - Cardiovascular Disease Care Team Information Newspaper Inserter [phone] [facility] - Care Team Information Newspaper Inserter [phone] Gastroenterology Jon Mcneil DO - Gastroenterology Care Team Information Newspaper Inserter [phone] Problems Active Problems Provider Date Benign essential hypertension Bienvenido Meier M.D. Onset: 12/22/2006 Hyperlipidemia Bienvenido Meier M.D. Onset: 04/30/2007 Benign prostatic hypertrophy without outflow Bienvenido Meier M.D. Onset: 01/2007 obstruction Palpitations Bienvenido Meier M.D. Onset: 03/28/2011 Arthropathy Bienvenido Meier M.D. Onset: 01/16/2012 Atrial fibrillation Bienvenido Meier M.D. Onset: 07/16/2012 Blood chemistry abnormal Bienvenido Meier M.D. Onset: 07/16/2012 Type 2 diabetes mellitus Bienvenido Meier M.D. Onset: 08/03/2013 Gastroesophageal reflux disease Bienvenido Meier M.D. Onset: 11/04/2013 Benign neoplasm of skin Bienvenido Meier M.D. Onset: 11/04/2013 Generalized abdominal pain Bienvenido Meier M.D. Onset: 11/04/2013 Eruption Bienvenido Meier M.D. Onset: 01/06/2014 Essential hypertension Bienvenido Meier M.D. Onset: 09/21/2015 Conjunctivitis Bienvenido Meier M.D. Onset: 09/21/2015 Paroxysmal atrial fibrillation Bienvenido Meier M.D. Onset: 01/18/2016 Benign neoplasm of epididymis Bienvenido Meier M.D. Onset: 01/18/2016 Degenerative joint disease involving multiple Bienvenido Meier M.D. Onset: 10/2016 joints Bronchitis Bienvenido Meier M.D. Onset: 01/28/2017 Localized, primary osteoarthritis Bienvenido Meier M.D. Onset: 01/28/2017 Acute upper respiratory infection, unspecified Bienvenido Meier M.D. Onset: Hemorrhage of rectum and anus Bienvenido Meier M.D. Onset: 09/16/2017 Tick bite Bienvenido Meier M.D. Onset: 06/14/2019 Nonvenomous insect bite of upper arm without Bienvenido Meier M.D. Onset: infection Right upper quadrant pain Bienvenido Meier M.D. Onset: 07/16/2019 Cholecystitis Bienvenido Meier M.D. 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 METER TESTER 50mcg/Act Suspension Saline Nasal [place] 1-2 sprays twice 44ml 10/14/2019 daily each nostril Raman, FIELD MECH[employer]ICAL METER TESTER 0.65% Solution Medrol dose-pack as 1pack 10/14/2019 4mg Tablets instructed Raman, FIELD ME[employer]ICAL METER TESTER Losartan Potassium 1 by mouth every 90tabs I10 10/14/2019 day Raman, FIELD MECH[employer]ICAL METER TESTER 25mg Tablets Acyclovir apply to oral 15gm B00.89 10/14/2019 5% Ointment herpes outbreaks Raman, FIELD MECH[employer] METER TESTER three times a day as needed Metoprolol Tartrate take two tablets 120tabs Stephie 10/13/2018 by mouth twice a Raman, FIELD MECH[employer]ICAL METER TESTER 100mg Tablets day Atorvastatin Calcium Take One Tablet By 30tabs Bienvenido Meier, 08/10/2018 Mouth Every Day M.D. 20mg Tablets Nystatin/Triamcinolo Apply To Affected 30units R21 Bienvenido Meier, 2016 ne Acetonide Area(S) Twice M.D. Daily 281707-8.1Unit/GM-% Cream Omeprazole Take One Capsule 30caps K21.9 Bienvenido Meier, 10/03/2016 40mg By Mouth Every M.D. Capsules DR Morning as Needed Amoxicillin/Clavulan 1 by mouth twice a 6tabs Stephie ate Potassium day x 3 days Raman, FIELD MECH[employer]ICAL METER TESTER 875-125mg Tablets Fenofibrate Take One Tablet By 30tabs Bienvenido Meier, 145mg Mouth Every Day M.D. Tablets Aspirin 1 po qd Unknown 81mg History Medications Diazepam 1-2 patient every 5tabs Samm Urban, 09/15/2019 - 5mg Tablets 4 hours as needed M.D. 09/22/2019 Levofloxacin 1 by mouth every 10tabs Bienvenido Meier, 08/18/2019 - 500mg day for bronchitis M.D. 10/07/2019 Tablets Doxycycline Hyclate 1 by mouth twice a 14caps J20.9 [facility], 2018 - day x 7 days M.D. 08/18/2019 100mg Capsules Ventolin HFA 2 puffs every 4 16gm J20.9 [facility], 08/11/2019 - hours as needed M.D. 10/07/2019 108(90Base) mcg/Act Aerosol Tessalon Perles 1-2 tab by mouth 60caps J20.9 [facility], 08/11/2019 - 100mg every 6 hours as M.D. 10/07/2019 Capsules needed Amoxicillin 2 tab by mouth 42tabs J20.9 [facility], 08/11/2019 - 500mg three times a day M.D. 08/18/2019 Tablets x 1 week; Doxycycline Hyclate 2 by mouth once 4tabs Bienvenido Meier, 06/14/2019 - for deer tick bite M.Carmelita 07/16/2019 100mg Tablets Immunizations CPT Code Status Date Vaccine Lot # [id number] Given 10/07/2019 Pneumococcal Immunization [id number] Given 10/07/2019 Influenza vac quadrivalent preservative free 6 [id number] months and up [id number] Given 06/18/2018 Influenza Vac, Quadrivalent, Slit Virus, Im [id number] Given 05/08/2017 Influenza Vac, Quadrivalent, Slit Virus, Im [id number] 57089 Given 10/03/2016 Tdap Tetanus, W Pertussis [id number] Given 01/20/2007 Tetanus And Diptheria Adult Preservative Free >7Yrs Vital Signs Date Vital Result Comment 10/14/2019 9:35am BP Systolic 150 mmHg BP Diastolic 90 mmHg Heart Rate 68 /min Body Temperature 97.9 F Respiratory Rate 18 /min Weight 239.00 lb 10/07/2019 1:33pm BP Systolic 146 mmHg BP Diastolic 90 mmHg Heart Rate 68 /min Body Temperature 98.1 F Respiratory Rate 20 /min Height 67.5 inches 5'7.50" Weight 235.00 lb BMI (Body Mass Index) 36.3 kg/m2 Results Test Acquired Date Facility Test Result H/L Range Note CBC Auto Diff 10/11/2019 [facility] White Blood 9.4 10^3/uL Normal 3.5-10.8 Count Red Blood Count 4.47 10^6/uL Normal 4.18-5.48 Hemoglobin 13.4 g/dL Low 14.0-18.0 Hematocrit 38 % Low 42-52 Mean Corpuscular Volume 85 fL Normal 80-94 Mean Corpuscular Hemoglobin 30 pg Normal 27-31 Mean Corpuscular HGB Conc 36 g/dL Normal 31-36 Red Cell Distribution Width 14 % Normal 10-15 Platelet Count 194 10^3/uL Normal 150-450 Mean Platelet Volume 7.7 fL Normal 7.4-10.4 Abs Neutrophils 6.9 10^3/uL Normal 1.5-7.7 Abs Lymphocytes 1.4 10^3/uL Normal 1.0-4.8 Abs Monocytes 1.1 10^3/uL High 0-0.8 Abs Eosinophils 0.1 10^3/uL Normal 0-0.6 Abs Basophils 0.1 10^3/uL Normal 0-0.2 Abs Nucleated RBC 0.0 10^3/uL Granulocyte % 72.5 % Lymphocyte % 14.6 % Monocyte % 11.4 % Eosinophil % 0.9 % Basophil % 0.6 % Nucleated Red Blood Cells % 0.1 Comp Metabolic Panel 10/11/2019 [facility] Sodium 135 mmol/L Normal 135-145 Potassium 3.6 mmol/L Normal 3.5-5.0 Chloride 103 mmol/L Normal 101-111 Co2 Carbon Dioxide 24 mmol/L Normal 22-32 Anion Gap 8 mmol/L Normal 2-11 Glucose 224 mg/dL High 70-100 Blood Urea Nitrogen 17 mg/dL Normal 6-24 Creatinine 0.94 mg/dL Normal 0.67-1.17 BUN/Creatinine Ratio 18.1 Normal 8-20 Calcium 8.9 mg/dL Normal 8.6-10.3 Total Protein 6.8 g/dL Normal 6.4-8.9 Albumin 3.8 g/dL Normal 3.2-5.2 Globulin 3.0 g/dL Normal 2-4 Albumin/Globulin Ratio 1.3 Normal 1-3 Total Bilirubin 0.50 mg/dL Normal 0.2-1.0 Alkaline Phosphatase 56 U/L Normal 34-104 Alt 31 U/L Normal 7-52 Ast 20 U/L Normal 13-39 Egfr Non- 80.5 >60 Egfr 97.5 >60 1 Laboratory test finding 10/11/2019 [facility] Troponin-I (TnI) 0.01 ng/mL < 0.03 2 Rapid Influenza A & B 10/09/2019 [facility] Influenza A Molecular Negative Negative Molecular Influenza B Molecular Negative Negative 3 Ua - Non Micro (Fma) 10/07/2019 [facility] Appearance clear (607)- - Color yellow Glucose, Urine (a/[facility]/CTX) - Bilirubin - Ketones - SP Grav >= 1.030 Blood - PH 5.0 Protein - Urobil 0.2 Nitrite - Leukocytes ([facility]) - Laboratory test 09/24/2019 Deng Anna([facility]) PSA 0.9 ng/mL 0.0-4.0 finding Lipid Profile 09/24/2019 Deng Anna([facility]) Cholesterol 171 mg/dL 120- 200 Triglycerides 242 mg/dL High 30-200 HDL Cholesterol 38 mg/dL 30-70 LDL (Calculated) 85 CALC 0-129 VLDL Cholesterol 48 mg/dL 0-50 HDL Risk Factor 4.5 CALC High 0.0-4.4 CBC Electronic a 09/24/2019 Ish Anna([facility]) WBC 8.4 x10^3/UL 4.0- 10.0 RBC 5.25 x10^6/UL 3.93-6.00 HGB 15.3 g/dL 12.0-17.0 HCT 45 % 35-50 MCV 85.7 fL 80.0-95.0 MCH 29.1 pg 25.6-32.2 MCHC 34.0 g/dL 32.2-36.0 RDW-CV 12.8 % 11.6-14.4 PLT 258 x10^3/UL 163-400 MPV 9.2 fL Low 9.4-12.4 Maddie# 4.83 x10^3/UL 1.56-6.13 Lymph# 2.61 x10^3/UL 1.18-3.74 [place]# 0.76 x10^3/UL 0.24-0.82 Eos # 0.1 x10^3/UL 0.0-0.5 Baso # 0.03 x10^3/UL 0.01-0.08 Maddie% 57.5 % 34.0-70.0 Lymph % 31.1 % 20.0-52.0 [place]% 9.1 % 5.0-12.0 Eos% 1.7 % 0.7-7.0 Baso% 0.4 % 0.1-1.2 Comprehensive Metabolic 09/24/2019 Ish Castillo([facility]) Sodium 137 mEq/L 134-149 Prof Potassium 4.8 mEq/L 3.6-5.5 Chloride 98 mEq/L 94-112 Carbon Dioxide 25 mEq/L 21-32 Glucose 124 mg/dL High 70-105 4 BUN 21 mg/dL 6-26 Creatinine 1.0 mg/dL 0.6-1.4 BUN/Creat Ratio 21.0 CALC 8.0-36.0 Calcium 10.4 mg/dL 8.9-10.6 Total Protein 7.7 g/dL 6.4-8.3 Albumin 4.9 g/dL 3.8-5.5 Globulin 2.8 g/dL 2.0-4.8 A/G Ratio 1.8 CALC 0.6-2.3 Alk. Phosphatase 51 U/L 22-95 Alt (SGPT) 23 U/L 7-35 Ast (Sgot) 26 U/L 5-34 Total Bilirubin 0.6 mg/dL 0.2-1.3 GFR Non- >60 ml/min/1.73m^ >=60 GFR >60 ml/min/1.73m^ >=60 Laboratory test finding 09/08/2019 Deng Anna(a) BUN 15 mg/dL 6- 26 Creatinine 1.0 mg/dL 0.6-1.4 Comprehensive Metabolic 07/16/2019 Ish Anna(a) Sodium 140 mEq/L 134-149 Prof Potassium 5.1 mEq/L 3.6-5.5 Chloride 102 mEq/L 94-112 Carbon Dioxide 25 mEq/L 21-32 Glucose 122 mg/dL High 70-105 BUN 18 mg/dL 6-26 Creatinine 1.2 mg/dL 0.6-1.4 BUN/Creat Ratio 15.0 CALC 8.0-36.0 Calcium 9.8 mg/dL 8.6-10.2 Total Protein 8.3 g/dL 6.4-8.3 Albumin 5.3 g/dL 3.8-5.5 Globulin 3.0 g/dL 2.0-4.8 A/G Ratio 1.8 CALC 0.6-2.3 Alk. Phosphatase 56 U/L 22-95 Alt (SGPT) 24 U/L 7-35 Ast (Sgot) 25 U/L 5-34 Total Bilirubin 0.7 mg/dL 0.2-1.3 GFR Non- >60 ml/min/1.73m^ >=60 GFR >60 ml/min/1.73m^ >=60 Lipid Profile 07/16/2019 Ish Anna(a) Cholesterol 207 mg/dL High 120-200 Triglycerides 236 mg/dL High 30-200 HDL Cholesterol 48 mg/dL 30-70 LDL (Calculated) 112 CALC 0-129 VLDL Cholesterol 47 mg/dL 0-50 HDL Risk Factor 4.3 CALC 0.0-4.4 Laboratory test 07/16/2019 family [facility] Hemoglobin A1c 6.2 % % High 4.1-5.7 finding (607)- - (Fma) CBC Electronic 07/16/2019 [facility] WBC 9.81 4.0-10.0 (Fma New) (607)- - RBC 5.33 3.93-6.0 Hemoglobin ([facility]ma/[facility]/CTX) 15.6 g/dL 12.0-17.0 Hematocrit (Fma/[facility]/CTX) 45.6 % 35.0-50.0 Mean Corpuscular Vol 85.6 fL 80-95 Mean Corpuscular Hemoglobin 29.3 pg 25.6-32.2 Mean Corpuscular Hemo Concen 34.2 g/dL 32.2-36.0 Platelets 264 10^3/ul 163-400 RDW-CV 12.6 11.6-14.4 Mean Platelet Volume 9.0 fL 8.0-12.4 Absolute Neutrophils BLD 5.81 1.56-6.13 Absolute Lymphocytes 3.07 1.18-3.74 Absolute Monocytes BLD Auto 0.74 0.24-0.82 Absolute Eos Blood 0.14 0.04-0.54 Absolute Basophils 0.03 0.01-0.08 Neutrophil % 59.3 % 34.0-70.0 Lymph% 31.3 % 20.0-52.0 Monocytes % 7.5 % 5.0-12.0 Eos % 1.4 % 0.7-7.0 Basophil% 0.3 % 0-1.2 1 Because ethnic data is not always readily available, this report includes an eGFR for both -Americans and non- Americans. The National Kidney Disease Education Program (NKDEP) does not endorse the use of the MDRD equation for patients that are not between the ages of 18 and 70, are , have extremes of body size, muscle mass, or nutritional status, or are non- or non-. According to the National Kidney Foundation, irrespective of diagnosis, the stage of the disease is based on the level of kidney function: Stage Description GFR(mL/min/1.73 m(2)) 1 Kidney damage with normal or decreased GFR 90 2 Kidney damage with mild decrease in GFR 60-89 3 Moderate decrease in GFR 30-59 4 Severe decrease in GFR 15-29 5 Kidney failure <15 (or dialysis) 2 Troponin-I testing on Plasma Separator Tubes (PST) has a known false positive rate of 0.20-0.40%. All positive troponins reflex immediately to secondary confirmatory testing. Using the [employer] Access Immunoassay systems, the 99th percentile upper reference limit was demonstrated to be < 0.03 ng/mL. 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 Office Jyotsna Carpenter, J20.9 Acute bronchitis, 8:40a M.D. unspecified J18.9 Pneumonia, unspecified organism Office Visit 07/16/2019 4:00p Main Office Bienvenido Meier, I10 Essential ( primary) M.D. hypertension K21.9 Gastro-esophageal reflux disease without esophagitis E11.9 Type 2 diabetes mellitus without complications E78.5 Hyperlipidemia, unspecified I48.0 Paroxysmal atrial fibrillation R10.11 Right upper quadrant pain Office Visit 06/14/2019 10:00a Main Office Bienvenido Meier, I10 Essential ( primary) M.D. hypertension K21.9 Gastro-esophageal reflux disease without esophagitis S40.861A Insect bite (nonvenomous) of right upper arm, init encntr W57.xxxA Bit/stung by nonvenom insect & oth nonvenom arthropods, init Assessments Date Code Description Provider 10/14/2019 H92.02 Otalgia, left ear Stephieeusebio Camargo, [facility] 10/14/2019 H66.92 Otitis media, unspecified, left ear Stephie Raman, [facility] 10/14/2019 H60.8x2 Other otitis externa, left ear Stephie Raman, [facility] 10/14/2019 R68.84 Jaw pain Stephieeusebio Camarog, [facility] 10/14/2019 B00.89 Other herpesviral infection Stephie Camargo, [facility] 10/14/2019 I10 Essential (primary) hypertension Stephie Camargo, [facility] 10/14/2019 E66.3 Overweight Stephie Camargo, [facility] 10/07/2019 Z00.00 Encounter for general adult medical Bienvenido Meier M.D. examination without abnormal findings 10/07/2019 I10 Essential (primary) hypertension Bienvenido Meier M.D. 10/07/2019 E11.9 Type 2 diabetes mellitus without Bienvenido Meier M.D. complications 10/07/2019 E78.5 Hyperlipidemia Bienvenido Meier M.D. 10/07/2019 I48.0 Paroxysmal atrial fibrillation Bienvenido Meier M.D. 10/07/2019 K21.9 Gastro-esophageal reflux disease without Bienvenido Meier M.D. esophagitis 10/07/2019 K81.9 Cholecystitis, unspecified Bienvenido Meier M.D. 10/07/2019 Z23 Encounter for immunization Bienvenido Meier M.D. 09/24/2019 Z00.00 Encounter for general adult medical Bienvenido Meier M.D. examination without abnormal findings 09/08/2019 K21.9 Gastro-esophageal reflux disease without Jyotsna Carpenter M.D. esophagitis 09/08/2019 E11.9 Type 2 diabetes mellitus without Jyotsna Carpenter M.D. complications 09/08/2019 R10.11 Right upper quadrant pain Jyotsna Carpenter M.D. 09/08/2019 I10 Essential (primary) hypertension Jyotsna Carpenter M.D. 08/11/2019 J20.9 Acute bronchitis, unspecified Jyotsna Carpenter M.D. 08/11/2019 J18.9 Pneumonia, unspecified organism Jyotsna Carpenter M.D. 07/16/2019 I10 Essential (primary) hypertension Bienvenido Meier M.D. 07/16/2019 K21.9 Gastro-esophageal reflux disease without Bienvenido Meier M.D. esophagitis 07/16/2019 E11.9 Type 2 diabetes mellitus without Bienvenido Meier M.D. complications 07/16/2019 E78.5 Hyperlipidemia Bienvenido Meier M.D. 07/16/2019 I48.0 Paroxysmal atrial fibrillation Bienvenido Meier M.D. 07/16/2019 R10.11 Right upper quadrant pain Bienvenido Meier M.D. 06/14/2019 I10 Essential (primary) hypertension Bienvenido Meier M.D. 06/14/2019 K21.9 Gastro-esophageal reflux disease without Bienvenido Meier M.D. esophagitis 06/14/2019 S40.861A Nonvenomous insect bite of upper arm Bienvenido Meier M.D. without infection 06/14/2019 W57.xxxA Bitten or stung by nonvenomous insect and Bienvenido Meier M.D. other nonvenomous arthropods, initial encounter Plan of Treatment Future Appointment(s):01/13/2020 11:00 am - Bienvenido [facility]ier M.D. at [facility]10/14/2019 - Stephie Camargo, FNPH92.02 Otalgia, left earNew Medication: Fluticasone Propionate 50 mcg/Act - 2 sprays each nostril dailySaline Nasal [place] 0.65 % - 1-2 sprays twice daily each nostrilMedrol 4 mg - dose-pack as instructedComments:You're on the right medication for the infection-- continue and FINISHI am not convinced all your symptoms match the infection; you MUST start to see significant improvement in your condition with today's additions, or come back SAT Dr Meier is working Sat so it's a good plan if neededNasal Saline irrigtion, left side mostly, 2-3 times per dayNasal steroid-- FLONASE-- 1 x per dayAdd medrol-- low dose steroid-- WITH FOODPush fluids, rest, warm liquids with honey/lemon? warm compresses over left sideof face/ear/jaw ?H66.92 Otitis media, unspecified, left earH60.8x2 Other otitis externa, left earR68.84 Jaw painB00.89 Other herpesviral infectionNew Medication:Acyclovir 5 % - apply to oral herpes outbreaks three times a day as neededComments:Cream may help with fever blisterNo [id number] Essential (primary) hypertensionNew Medication: Losartan Potassium 25 mg - 1 by mouth every dayComments:Restart losartan for blood pressure, follow-up with Dr Meier in .3 Overweight Functional Status Description No Information Available Mental Status Description No Information Available Referrals Refer to Reason for Referral Status Appt Date Prabhakar Guillen MD Gallbladder Consult jw Scheduled 09/27/2019 [address] [place] [address] [place] [address] [phone] Jon Mcneil DO abdominal / epigastric pain jw Scheduled 09/13/[address] [place] [address] [phone]
--- NOTE | 2019-10-30 10:26 | ED ---
Throat Pain/Nasal Congestion - HPI Summary HPI Summary: This patient is a 64 year old M presenting to [facility] accompanied by partner with a chief complaint of pressure in ear since 10/09/19. Pt reports the ear infection was diagnosed on 10[facility]09/19, at [facility] Pt was placed on prednisone for 20 days. At [facility], they used water to try to clear out the wax, and for a few days after water leaked out. Pt report that he was using a cotton to get water out, and blood was appearing on the cotton. Pt reports it now feels like swimmers ear as there is constant pressure and it rings constantly. Pt feels very dizzy (room spinning) and has been feeling nauseous recently. The pain from ear radiates to head and neck. However the hearing in his ear has been improving recently. Patient denies fever, congestion. Pt has PMHx of HTN, and is supposed to have surgery on gallbladder in the next week. Medications reviewed. Allergies noted. - History of Current Complaint Chief Complaint: EDEarPain Time Seen by Provider: 10/30/19 10:00 Hx Obtained From: Patient Onset/Duration: Gradual Onset, Lasting Weeks, Still Present Severity: Mild Associated Signs And Symptoms: Positive: Negative Cough: None - Allergies/Home Medications Allergies/Adverse Reactions: Allergies Allergy/AdvReac Type Severity Reaction Status Date / Time gemfibrozil Allergy Anaphylatic Verified 10/30/19 09:55 Shock Home Medications: Home Medications Aspirin EC TAB* [Ecotrin EC Low Dose 81 MG*] 81 mg PO QAM 04/27/14 [History Confirmed 10/28/19] Atorvastatin* [Lipitor 20 MG*] 20 mg PO BEDTIME 04/27/14 [History Confirmed ] Metoprolol Tartrate TAB* [Lopressor TAB*] 100 mg PO BID 04/27/14 [History Confirmed 10/28/19] Omeprazole CAP (NF) [Prilosec CAP* 20 MG] 40 mg PO QAM 04/27/14 [History Confirmed 10/28/19] Fenofibrate Nanocrystallized [Tricor] 145 mg PO BEDTIME 10/09/19 [History Confirmed 10/28/19] Ibuprofen TAB* [Advil TAB*] 400 mg PO Q6H PRN 10/09/19 [History Confirmed ] Meclizine TAB* [Antivert 12.5 TAB*] 25 mg PO TID PRN #20 tab MDD 3 10/11/19 [Rx Confirmed 10/28/19] Fluticasone NASAL SPRAY 50MCG* [Flonase NASAL SPRAY 50MCG*] 2 spray BOTH NARES QAM 10/28/19 [History Confirmed 10/28/19] Meclizine TAB* [Antivert 12.5 TAB*] 25 mg PO TID PRN #30 tab 10/30/19 [Rx] PMH/Surg Hx/FS Hx/Imm Hx Endocrine/Hematology History: Denies: Hx Diabetes, Hx Thyroid Disease Cardiovascular History: Reports: Hx Coronary Artery Disease, Hx Hypercholesterolemia, Hx Hypertension Denies: Hx Congestive Heart Failure, Hx Pacemaker/ICD Respiratory History: Denies: Hx Asthma, Hx Chronic Obstructive Pulmonary Disease (COPD) GI History: Denies: Hx Ulcer History: Denies: Hx Renal Disease Musculoskeletal History: Reports: Hx Arthritis, Hx Orthopedic Injury - left rotator cuff, shefali knee repair Sensory History: Reports: Hx Contacts or Glasses Denies: Hx Hearing Aid Opthamlomology History: Reports: Hx Contacts or Glasses Neurological History: Reports: Other Neuro Impairments/Disorders - Transient Global Amnesia 6yrs ago Psychiatric History: Reports: Hx Anxiety - pre-med for MRI Denies: Hx Panic Disorder - Surgical History Surgery Procedure, Year, and Place: left shoulder Rotator cuff repair VASECTOMY. Shefali Knee repair. heart pfo closure/ablation 2004. hx of metal injury to eyes - cleared in 2007 but unable to find xray report now. As long as pt reports no new injury since that exam, Dr Padilla cleared the patient from the previous MRI Infectious Disease History: No Infectious Disease History: Denies: Hx Hepatitis, Hx Human Immunodeficiency Virus (HIV), Traveled Outside the [place] in Last 30 Days - Family History Known Family History: Positive: Hypertension, Diabetes - Social History Alcohol Use: Rare Hx Substance Use: No Substance Use Type: Reports: None Hx Tobacco Use: Yes Smoking Status (MU): Former Smoker Review of Systems Positive: Ear Ache, Other - ear pressure, ringing in ears Positive: Vomiting, Nausea Neurological/Mental Status: Other - dizziness, unsteady gait All Other Systems Reviewed And Are Negative: Yes Physical Exam - Summary Physical Exam Summary: Constitutional: Well-developed, Well-nourished, Alert. (-) Distressed Skin: Warm, Dry HENT: Normocephalic; Atraumatic; Right TM slightly bulging, Left TM with some erythema, inferior portion has some scar tissue, no drainage, and no pain with manipulation. Eyes: Conjunctiva normal Neck: Musculoskeletal ROM normal neck. (-) JVD, (-) Stridor, (-) Tracheal deviation Cardio: Rhythm regular, rate normal, Heart sounds normal; Intact distal pulses; Radial pulses are 2+ and symmetric. (-) Murmur Pulmonary/Chest wall: Effort normal. (-) Respiratory distress, (-) Wheezes, (-) Rales Abd: Soft, (-) tenderness, (-) Distension, (-) Guarding, (-) Rebound Musculoskeletal: (-) Edema Lymph: (-) Cervical adenopathy Neuro: Alert, Oriented x3 Psych: Mood and affect Normal Triage Information Reviewed: Yes Vital Signs On Initial Exam: Initial Vitals Temp Pulse Resp BP Pulse Ox 97.0 F 76 16 154/96 96 10/30/19 09:53 10/30/19 09:53 10/30/19 09:53 10/30/19 09:53 10/30/19 09:53 Vital Signs Reviewed: Yes Procedures - Sedation Patient Received Moderate/Deep Sedation with Procedure: No Diagnostics - Vital Signs Vital Signs Temp Pulse Resp BP Pulse Ox 10/30/19 09:53 97.0 F 76 16 154/96 96 - Laboratory Lab Statement: Any lab studies that have been ordered have been reviewed, and results considered in the medical decision making process. EENT Course/Dx - Course Course Of Treatment: Patient is here with pressure in his left ear and episodes of vertigo. Patient's been doing this for a couple of weeks and has been on antibiotics and prednisone for this. Patient is here because cannot get to ENT until mid October. Patient's exam did show some erythema and possible scarring to his TM. Patient's symptoms are not consistent with a ear infection so he was started on antibiotics. Patient was told to try meclizine at home and to call his primary care doctor for PT referral for his vertigo. - Diagnoses Provider Diagnoses: Vertigo Discharge ED - Sign-Out/Discharge Documenting (check all that apply): Patient Departure - Discharge - Discharge Plan Condition: Stable Disposition: HOME Prescriptions: Meclizine TAB* [Antivert 12.5 TAB*] 25 mg PO TID PRN #30 tab PRN Reason: Vertigo Patient Education Materials: Vertigo (ED) Referrals: Bienvenido Meier MD [Primary Care Provider] - 3 Days Additional Instructions: Call ENT on Mon to try to get a sooner appointment. Call your primary care provider to get referral for physical therapy. Try medication. Return to ED for any worsening symptoms. - Billing Disposition and Condition Condition: STABLE Disposition: Home - Attestation Statements Document Initiated by Liliaibe: Yes Documenting Scribe: Carmencita Todd Provider For Whom Keira is Documenting (Include Credential): Curtis Pérez Scribe Attestation: Carmencita Thurston, scribed for Curtis Pérez on 10/30/19 at 1226. Scribe Documentation Reviewed: Yes Provider Attestation: The documentation as recorded by the Carmencita blanco accurately reflects the service I personally performed and the decisions made by Curtis barrera Status of Scribe Document: Viewed
[2019-10-30 10:56] VITALS: BP 154/86
== END 2019-10-30 10:55 | disposition home or self-care (01) ==
LOC: ED 09:51
DX: R42 Dizziness and giddiness (principal); I25.10 Atherosclerotic heart disease of native coronary artery without angina pectoris; R11.2 Nausea with vomiting, unspecified; E78.00 Pure hypercholesterolemia, unspecified; I10 Essential (primary) hypertension
CPT/HCPCS: 99282

== ENCOUNTER 2019-11-04 05:33 | Day surgery (SDC) | payer OTHER, MEDICARE ==
--- NOTE | 2019-10-22 13:25 | HP ---
CC: Dr. Meier at [facility] * ADMISSION HISTORY AND PHYSICAL: DATE OF ADMISSION: 11/04/19 ATTENDING SURGEON: Dr. Prabhakar Guillen.* (DICTATED BY MARCELINO PANG) CHIEF COMPLAINT: Gallstones. HISTORY OF PRESENT ILLNESS: This is a 64-year-old gentleman, who since fall of last year began to notice increased symptoms of upper abdominal discomfort typically related to fatty foods and associated with nausea but no vomiting. He denies any episode severe enough to warrant emergency room visit. He denies any change in color of his urine or stools. He did discuss this with his primary care provider, Dr. Meier who ordered an ultrasound, which was performed on 07/19/19. This showed fatty change in the liver, but no gallstones or signs of acute cholecystitis. Common bile duct was measured at 0.8 cm. A subsequent HIDA scan on 08/31/19 did visualize the gallbladder, but no tracer was evident in the small intestine at [address] scan of the abdomen with contrast was performed on 09/09/19, showing mild ectasia of the distal common bile duct, which was measured at 1.0 cm, also noted was a 3-cm diameter cephalad projecting diverticulum of the proximal one third of the duodenum, which was causing some impression on the head of the pancreas (there was also some mild dilatation of the distal pancreatic duct). (Dr. Guillen discussed this with Dr. Marrero, who did not feel that this was a contributor to his symptomatology.) MRCP on 09/21/19 showed no common bile duct dilatation or common duct stone. There was a 0.5-cm stone located in the Phrygian cap of the fundus of the gall-bladder. Lab work on 09/13/19 was normal in terms of liver function tests and CBC. Glucose was mildly elevated at 161. There is no known family history of gallbladder disease. The patient was seen in the office by Dr. Guillen on 09/27/19. His history and workup were reviewed. Exam was relatively unremarkable at that point. Dr. Guillen felt that his clinical picture was consistent with symptomatic cholelithiasis and recommended cholecystectomy. After review of the indications, risks, benefits, and alternatives, the patient would like to proceed as scheduled with robotic cholecystectomy. PAST MEDICAL HISTORY: Hypertension; hyperlipidemia; history of paroxysmal atrial fibrillation, status post ablation with resolution of the atrial fibrillation; obesity; hiatal hernia with GERD; possible mild sleep apnea. The patient also had a transient ischemic event found to be related to a patent foramen ovale, which was subsequently closed in 2004 without sequelae. PAST SURGICAL HISTORY: Other surgeries include left rotator cuff repair, bilateral carpal tunnel release, right total knee replacement, and prior bilateral knee arthroscopies. He is also status post repair of a right hand injury in 2019. No reported surgical or anesthesia complications. CURRENT MEDICATIONS: 1. Lipitor 20 mg once daily. 2. Aspirin 81 mg once daily (the patient is instructed to continue perioperatively). 3. Metoprolol 100 mg b.i.d. 4. Fenofibrate 145 mg once daily. 5. Omeprazole 40 mg once daily. 6. Fluticasone 2 sprays each nostril once daily (started recently related to the last year symptoms). 7. The patient recently completed a 10-day course of Augmentin related to his ear symptoms. 8. He is currently on prednisone 20 mg once daily with anticipated taper to 10 mg once daily at the time of surgery. DRUG ALLERGIES: GEMFIBROZIL (hives). FAMILY HISTORY: Negative for anesthesia problems, bleeding or clotting disorders. SOCIAL HISTORY: The patient lives with his girlfriend. 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 He is a former smoker, but quit 40 years ago. He drinks alcohol infrequently and denies use of any other recreational drug. REVIEW OF SYSTEMS: General: He did have recent left ear symptoms for which he underwent irrigation for removal of cerumen at [facility]. This was subsequently associated with some pain and bloody discharge from the ear as well as decreased auditory acuity. He recently completed a course of antibiotics and is currently on a steroid taper with referral made to ENT for which he has not yet received an appointment. HEENT: Left ear symptoms as noted above. No other recent problems or changes. Cardiovascular: No recent chest pain or palpitations. He apparently had some mildly abnormal EKG changes for which he was seen by Dr. George and underwent nuclear stress test on 10/07/19. That did show a small area of possible ischemia in the septum that was felt by Dr. George to be a low risk for artifact, and therefore okay to proceed to surgery without further cardiac testing. Respiratory: No recent shortness of breath or chronic cough. GI: As above per HPI. No lower GI symptoms. Colonoscopy done in 2014, no interval symptoms of concern. : No problems reported. Endocrine: No diabetes. He states he is "prediabetic." No thyroid dysfunction. PHYSICAL EXAMINATION GENERAL: Well-nourished, obese male, in no acute distress. VITAL SIGNS: Height 68 inches, weight 232 pounds, blood pressure 142/96, pulse 66, respirations 16. HEENT: Pupils equal, round, and reactive. EOMs intact. No conjunctival pallor. No scleral icterus. Oropharynx: Teeth in fair to good repair. Some missing teeth. No intraoral lesions. He recently had a couple of teeth extracted, but no complications reported. NECK: No lymphadenopathy, thyromegaly or masses. LUNGS: Clear to auscultation. No rales or wheezes. HEART: Regular rate and rhythm. No murmur appreciated. ABDOMEN: Obese, soft, nontender to palpation. No palpable masses or organomegaly. Negative Franco sign. GENITALIA: Not done. RECTAL: Not done. BACK: No spinous process or CVA tenderness. EXTREMITIES: No edema. NEUROLOGICAL: Grossly intact. SKIN: Warm and dry. No suspicious rashes or lesions noted. IMPRESSION: Symptomatic cholelithiasis. PLAN/RECOMMENDATIONS: Robotic cholecystectomy, possible intraoperative cholangiogram. MARCELINO PANG [id number]/[facility] #: [id number] [facility]ACH HOSPITALPhilomena
[~2019-11-04 05:33] MED LIST: Buffered Lidocaine 1% SYRIN* 1 ML/SYRINGE INTRADERM ONE
[2019-11-04] MEDS ORDERED: Lactated Ringers 1000 ML Bag* 1,000 ML IV SCH (06:00)
[2019-11-04] MEDS ORDERED: ceFAZolin 2 GM PREMIX in ORs 2 GM/50 ML BAG ONE (06:08)
[2019-11-04] MEDS ORDERED: Buffered Lidocaine 1% SYRIN* 1 ML/SYRINGE INTRADERM ONE (06:09)
[2019-11-04] MEDS ORDERED: Dexamethasone IV* 4 MG/ML 1 ML (4 MG) ONE (06:22)
[2019-11-04] MEDS ORDERED: Midazolam* 1 MG/ML 2 ML VIAL (2 MG) ONE (06:22)
[2019-11-04] MEDS ORDERED: Propofol* 10 MG/ML 20 ML BTL ONE (06:22)
[2019-11-04] MEDS ORDERED: Rocuronium* 10 MG/ML VIAL ONE ×2 (06:22→08:09)
[2019-11-04] MEDS ORDERED: EPHEDrine (Pressors)* 50 MG/ML VIAL ONE (06:22)
[2019-11-04] MEDS ORDERED: fentaNYL* 50 MCG/ML 2 ML VIAL (100 MCG VIAL) ONE ×3 (06:22→10:36)
[2019-11-04] MEDS ORDERED: Ondansetron INJ* 2 MG/ML VIAL ONE (06:22)
[2019-11-04] MEDS ORDERED: Succinylcholine* 20 MG/ML 10 ML VIAL ONE (06:22)
[2019-11-04] MEDS ORDERED: Lidocaine 2% PF * 5 ML VIAL ONE (06:23)
[2019-11-04] MEDS ORDERED: Sterile Water for Inj* 10 ML ONE (06:31)
[2019-11-04] MEDS ORDERED: Bupivacaine 0.5%* 50 ML MDV VIAL ONE (07:10)
[2019-11-04] MEDS ORDERED: Iohexol 180 (CONTRAST) 10 ML SDV IV ONE (07:33)
[2019-11-04] MEDS ORDERED: Bupivacaine 0.5% W/EPI SDV* 30 ML VIAL ONE (07:52)
[2019-11-04] MEDS ORDERED: Acetaminophen IV 1GM/100ML * 100 ML ONE (08:39)
[2019-11-04] MEDS ORDERED: Naloxone* 0.4 MG/ML 1 ML VIAL IV PRN (08:41)
[2019-11-04] MEDS ORDERED: Sugammadex * 200 MG/2 ML VIAL IV PUSH ONE (08:57)
--- NOTE | 2019-11-04 09:33 | BRIEFOPN ---
Brief Operative/Procedure Note - Operation Details Pre-Op Diagnosis: symptomatic cholelithiasis Post-Op Diagnosis: same Procedures: robotic cholecystectomy Surgeon(s)/Proceduralists: Mindy. Assist: MARCELINO Waltres Anesthesia: GET. Fluids: 1000 ml RL Estimated Blood Loss: none Findings: as above Specimen(s)/Culture(s) Description: gallbladder Complications: none
[2019-11-04] MEDS: fentaNYL* 50 MCG/ML 2 ML VIAL (100 MCG VIAL) IV PRN ×5 (09:34→10:39)
[2019-11-04] MEDS ORDERED: HYDROcodone/ACETAMIN 5-325 MG* 1 TAB ONE (10:53)
[2019-11-04 11:28] VITALS: BP 138/86
--- NOTE | 2019-11-04 23:25 | OP ---
CC: Bienvenido Meier MD; Jon Mcneil DO* OPERATIVE REPORT: DATE OF OPERATION: 11/04/19 - [facility] DATE OF : 53 SURGEON: Prabhakar Guillen MD SECURITY OFFICER SUPERVISOR: MARCELINO Cagle ANESTHESIOLOGIST: Dr. Leary. ANESTHESIA: General endotracheal. PRE-OP DIAGNOSIS: Symptomatic cholelithiasis. POST-OP DIAGNOSIS: Symptomatic cholelithiasis. OPERATIVE PROCEDURE: Robotic cholecystectomy. ESTIMATED BLOOD LOSS: Minimal. IV FLUIDS: Crystalloid. SPECIMEN: Gallbladder. DRAINS: None. COMPLICATIONS: None. COUNTS: Instrument, needle and sponge counts correct. DESCRIPTION OF PROCEDURE: The patient was brought to the operating room and placed on the table supine. Sequential compression devices were placed on both lower extremities. General anesthesia was administered. His abdomen was prepped and draped in usual sterile fashion. A time-out was performed. Local anesthetic was infiltrated into the skin and soft tissue prior to making each incision. Entry to the abdomen was through a left upper quadrant incision accommodating an 8 mm optical trocar. After accessing the peritoneal cavity, carbon dioxide was insufflated to a pressure of 12 mmHg. Under direct visualization, additional 8 mm trocars were placed in a line across the abdomen from the supraumbilical region laterally in the right upper quadrant. The robot was docked. There were numerous adhesions of omentum to the right lobe of the liver into the gallbladder itself. Sharp and blunt dissection was used to free all these adhesions. The gallbladder fundus was identified, it was grasped, retracted cephalad. The peritoneum invested in the gallbladder was incised sharply, dissected free both on the medial and lateral aspects and cystic artery was also dissected out and a critical view was obtained. Firefly was used as well to confirm the anatomy. The cystic duct was doubly clipped and the cystic artery was clipped and each divided. Then the gallbladder was freed from attachments to the liver using the sharp dissection and cautery and staying in an avascular plane. At one point, the gallbladder was entered and bile spillage was minimalized by repositioning the graspers. After completing the dissection of the gallbladder away from the liver, was placed into an endoscopic retrieval bag. Irrigation was performed until clear and inspection revealed clips to be intact and hemostasis was ensured. The robot was undocked. The gallbladder was retrieved and the ports were then removed under direct visualization. The supraumbilical site where the gallbladder had been extracted was closed with a 0 Vicryl in interrupted fashion and then all the remaining skin incisions were closed with 4-0 Monocryl in subcuticular fashion and DermaFlex was applied. The patient tolerated the procedure well, was extubated and transferred to Recovery in stable condition. [id number]/[facility] #: [id number] MTDD
== END 2019-11-04 14:37 | disposition home or self-care (01) ==
LOC: OR 05:33
PROVIDERS: ATTEND Surgery
DX: K81.1 Chronic cholecystitis (principal); I10 Essential (primary) hypertension; E78.5 Hyperlipidemia, unspecified; I48.91 Unspecified atrial fibrillation; E66.9 Obesity, unspecified; K21.9 Gastro-esophageal reflux disease without esophagitis; K44.9 Diaphragmatic hernia without obstruction or gangrene; Z87.891 Personal history of nicotine dependence; G47.33 Obstructive sleep apnea (adult) (pediatric); Z86.73 Personal history of transient ischemic attack (TIA), and cerebral infarction without residual deficits
CPT/HCPCS: 47562; S2900; 88304; J0330; J0690; J1100; J2250; J2405; J2704; J3010; J3490

== ENCOUNTER 2021-07-12 10:09 | Inpatient (IN) ==
[2021-07-12] MEDS ORDERED: NS 0.9% 1000 ml BAG 1,000 ML IV ONE (10:20)
[2021-07-12] MEDS ORDERED: Alteplase (100 mg Vial) 100 mg VIAL IV ONE ×2 (10:34)
[2021-07-12] MEDS ORDERED: Iodixanol (CONTRAST) 320 MG/ML 100 ML SDV IV ONE (10:40)
[2021-07-12 10:41] LABS: ABS Eosinophils 0.1 10^3/ul (0-0.6); ABS Monocytes 0.6 10^3/ul (0-0.8); ABS Neutrophils 3.6 10^3/ul (1.5-7.7); Eosinophil % 2.1 %; Hematocrit 42 % (42-52); Hemoglobin 14.5 g/dL (14.0-18.0); Lymphocyte % 31.1 %; Mean Corpuscular HGB Conc 34 g/dL (31-36); Mean Corpuscular Hemoglobin 30 pg (27-31); Mean Corpuscular Volume 88 fL (80-94); Mean Platelet Volume 7.6 fL (7.4-10.4); Platelet Count 240 10^3/uL (150-450); Red Blood Count 4.81 10^6 /uL (4.18-5.48); Red Cell Distribution Width 14 % (10-15); White Blood Count 6.5 10^3/uL (3.5-10.8)
[2021-07-12] MEDS ORDERED: Labetalol IV 5 MG/ML 20 ml VIAL IV PUSH ONE ×3 (10:42→14:43)
[2021-07-12 10:52] LABS: Activated Partial Thrombo Time 25.7 seconds (26.0-38.0); INR 1.14 (0.86-1.15)
[2021-07-12 11:03] LABS: Troponin I 0.01 ng/mL (<0.03)
[2021-07-12 11:04] LABS: Albumin 4.3 g/dL (3.2-5.2); Albumin/Globulin Ratio 1.4 (1-3); Calcium 9.3 mg/dL (8.6-10.3); Globulin 3.1 g/dL (2-4); HDL Cholesterol 38.1 mg/dL; Potassium 4.5 mmol/L (3.5-5.0); Total Bilirubin 0.7 mg/dL (0.2-1.0); Total Protein 7.4 g/dL (6.4-8.9)
[2021-07-12] MEDS ORDERED: Labetalol IV 5 MG/ML 20 ml VIAL IV PUSH PRN ×2 (11:49→14:28)
[2021-07-12 14:39] LABS: Rapid COVID-19 Molecular Undetected (Undetected)
[2021-07-12] MEDS ORDERED: niCARdipine 0.1MG/ML IVPREMIX 20 MG/200 ML BAG IV SCH (15:00)
[2021-07-12] MEDS: Triamcinolone 0.025% OINT 15 GM TUBE TOPICAL SCH (20:43)
[2021-07-12 21:48] LABS: ABS Eosinophils 0.1 10^3/ul (0-0.6); ABS Lymphocytes 2.1 10^3/ul (1.0-4.8); ABS Monocytes 0.6 10^3/ul (0-0.8); ABS Neutrophils 3.1 10^3/ul (1.5-7.7); Eosinophil % 2.3 %; Hematocrit 38 % (42-52); Hemoglobin 13.4 g/dL (14.0-18.0); Lymphocyte % 34.9 %; Mean Corpuscular HGB Conc 35 g/dL (31-36); Mean Corpuscular Hemoglobin 30 pg (27-31); Mean Corpuscular Volume 86 fL (80-94); Mean Platelet Volume 7.5 fL (7.4-10.4); Nucleated Red Blood Cells % 0.1; Platelet Count 213 10^3/uL (150-450); Red Blood Count 4.46 10^6 /uL (4.18-5.48); Red Cell Distribution Width 14 % (10-15); White Blood Count 5.9 10^3/uL (3.5-10.8)
[2021-07-12 21:56] LABS: Activated Partial Thrombo Time 29.4 seconds (26.0-38.0); INR 1.2 (0.86-1.15)
[2021-07-13 02:29] LABS: Magnesium 1.8 mg/dL (1.9-2.7)
[2021-07-13] MEDS ORDERED: Morphine 10 MG/ML VIAL (1 ml) ONE (04:00)
[2021-07-13] MEDS ORDERED: Magnesium Sulfate 2 gm BAG 2 GM/50 ML BAG IVPB ONE (04:08)
[2021-07-13 04:44] LABS: ABS Eosinophils 0.1 10^3/ul (0-0.6); ABS Lymphocytes 1.4 10^3/ul (1.0-4.8); ABS Monocytes 0.6 10^3/ul (0-0.8); ABS Neutrophils 3.9 10^3/ul (1.5-7.7); Eosinophil % 1.5 %; Hematocrit 40 % (42-52); Hemoglobin 13.7 g/dL (14.0-18.0); Lymphocyte % 24.2 %; Mean Corpuscular HGB Conc 34 g/dL (31-36); Mean Corpuscular Hemoglobin 30 pg (27-31); Mean Corpuscular Volume 87 fL (80-94); Mean Platelet Volume 7.5 fL (7.4-10.4); Platelet Count 216 10^3/uL (150-450); Red Blood Count 4.59 10^6 /uL (4.18-5.48); Red Cell Distribution Width 14 % (10-15)
[2021-07-13 04:58] LABS: Albumin 4.1 g/dL (3.2-5.2); Albumin/Globulin Ratio 1.4 (1-3); Calcium 8.9 mg/dL (8.6-10.3); Magnesium 1.8 mg/dL (1.9-2.7); Phosphorus 3.1 mg/dL (2.5-5.0); Potassium 3.7 mmol/L (3.5-5.0); Total Bilirubin 0.7 mg/dL (0.2-1.0); Total Protein 7.1 g/dL (6.4-8.9)
[2021-07-13] MEDS ORDERED: Potassium Chloride LIQUID 20 MEQ/15 ML LIQUID PO ONE (07:30)
[2021-07-13] MEDS ORDERED: Morphine 2 MG/ML SYRINGE IV ONE (07:39)
[2021-07-13] MEDS: Triamcinolone 0.025% OINT 15 GM TUBE TOPICAL SCH ×2 (08:03→19:09)
[2021-07-13] MEDS ORDERED: Perflutren Lipid Microsphere 3 ML VIAL ONE (08:34)
[2021-07-13] MEDS ORDERED: Cyanocobalamin INJ 1,000 MCG/ML VIAL 1 ML VIAL IM ONE (10:02)
[2021-07-13] MEDS ORDERED: Ondansetron 4 mg VIAL 2 MG/ML 2 ml VIAL IV PRN (11:21)
[2021-07-13] MEDS ORDERED: Ondansetron 4 mg VIAL 2 MG/ML 2 ml VIAL ONE (11:22)
[2021-07-13] MEDS ORDERED: niCARdipine 0.1MG/ML IVPREMIX 20 MG/200 ML BAG IV SCH (15:16)
[2021-07-13] MEDS ORDERED: Labetalol IV 5 MG/ML 20 ml VIAL IV PUSH PRN (15:59)
[2021-07-13] MEDS: Aspirin EC 81 mg TAB.EC (enteric coated) PO SCH (16:22)
[2021-07-14 04:30] LABS: Calcium 9.4 mg/dL (8.6-10.3); Magnesium 2.1 mg/dL (1.9-2.7); Phosphorus 3.4 mg/dL (2.5-5.0); Potassium 4.4 mmol/L (3.5-5.0)
[2021-07-14] MEDS: Aspirin EC 81 mg TAB.EC (enteric coated) PO SCH (09:16)
[2021-07-14] MEDS: Triamcinolone 0.025% OINT 15 GM TUBE TOPICAL SCH (10:02)
[2021-07-15] MEDS: Aspirin EC 81 mg TAB.EC (enteric coated) PO SCH (09:30)
[2021-07-15 12:38] VITALS: BP 142/96
== END 2021-07-15 14:20 | disposition home or self-care (01) | DRG 63 ==
LOC: ED 10:09 → SUATTDRO 11:51 → EDHOLD 11:51 → ICU 13:51 → MEDTELE 07-14 17:06
PROVIDERS: ADMIT Internal Medicine Critical Care Medicine; ATTEND Internal Medicine

== ENCOUNTER 2021-09-04 14:20 | Observation (INO) ==
[2021-09-04] MEDS ORDERED: NS 0.9% 1000 ml BAG 1,000 ML IV ONE (14:33)
[2021-09-04 14:48] LABS: ABS Eosinophils 0.1 10^3/ul (0-0.6); ABS Monocytes 0.6 10^3/ul (0-0.8); ABS Neutrophils 3.7 10^3/ul (1.5-7.7); Eosinophil % 1.3 %; Hematocrit 43 % (42-52); Hemoglobin 14.8 g/dL (14.0-18.0); Lymphocyte % 31.5 %; Mean Corpuscular HGB Conc 35 g/dL (31-36); Mean Corpuscular Hemoglobin 30 pg (27-31); Mean Corpuscular Volume 87 fL (80-94); Nucleated Red Blood Cells % 0.1; Platelet Count 246 10^3/uL (150-450); Red Blood Count 4.97 10^6 /uL (4.18-5.48); Red Cell Distribution Width 14 % (10-15); White Blood Count 6.4 10^3/uL (3.5-10.8)
[2021-09-04] MEDS ORDERED: Iodixanol (CONTRAST) 320 MG/ML 100 ML SDV IV ONE (14:52)
[2021-09-04 15:00] LABS: Activated Partial Thrombo Time 35.2 seconds (26.0-38.0); INR 1.39 (0.86-1.15)
[2021-09-04 15:06] LABS: Albumin 4.7 g/dL (3.2-5.2); Albumin/Globulin Ratio 1.7 (1-3); Calcium 9.7 mg/dL (8.6-10.3); Globulin 2.7 g/dL (2-4); HDL Cholesterol 31.8 mg/dL; Potassium 4.1 mmol/L (3.5-5.0); Total Bilirubin 0.4 mg/dL (0.2-1.0); Total Protein 7.4 g/dL (6.4-8.9); Troponin I 0.01 ng/mL (<0.03); eGFR CKD-EPI 78.3 (>60)
[2021-09-05 07:04] LABS: Hematocrit 41 % (42-52); Hemoglobin 14.4 g/dL (14.0-18.0); Mean Corpuscular HGB Conc 35 g/dL (31-36); Mean Corpuscular Hemoglobin 30 pg (27-31); Mean Corpuscular Volume 87 fL (80-94); Mean Platelet Volume 8.3 fL (7.4-10.4); Platelet Count 217 10^3/uL (150-450); Red Blood Count 4.74 10^6 /uL (4.18-5.48); Red Cell Distribution Width 13 % (10-15)
[2021-09-05 07:16] LABS: Calcium 9.2 mg/dL (8.6-10.3); Magnesium 1.8 mg/dL (1.9-2.7); Potassium 4.5 mmol/L (3.5-5.0)
[2021-09-05] MEDS ORDERED: Magnesium Sulfate 2 gm BAG 2 GM/50 ML BAG IVPB ONE (07:54)
[2021-09-05 16:43] VITALS: BP 147/75
== END 2021-09-05 17:13 | disposition home or self-care (01) ==
LOC: ED 14:20 → EDHOLD 17:03 → INTOOBSV 17:03 → MEDTELE 19:51
PROVIDERS: ADMIT Internal Medicine; ATTEND Internal Medicine

== ENCOUNTER 2023-08-29 21:06 | Inpatient (IN) ==
[~2023-08-29 21:06] MED LIST changes: -Buffered Lidocaine 1% SYRIN* 1 ML/SYRINGE INTRADERM ONE; +Iodixanol 320 (CONTRAST) 100 ML SDV IV ONE
[2023-08-29 21:36] LABS: ABS Eosinophils 0.2 10^3/uL (0.0-0.5); ABS Lymphocytes 2.8 10^3/uL (1.0-4.8); ABS Monocytes 0.6 10^3/uL (0.0-1.1); ABS Neutrophils 3.6 10^3/uL (1.5-7.6); ABS Nucleated RBC 0.01 10^3/ul; Hematocrit 38.8 % (38-53); Hemoglobin 13.1 g/dL (13.2-16.3); Lymphocyte % 38.3 %; Mean Corpuscular Hemoglobin 29.2 pg (27-33); Mean Corpuscular Hgb Conc 33.7 g/dL (31-36); Mean Corpuscular Volume 86.7 fL (80-97); Mean Platelet Volume 7.7 fL (7.5-11.2); Nucleated Red Blood Cells % 0.1 %/100WBC (0.0-0.8); Platelet Count 261 10^3/uL (150-450); Red Blood Count 4.48 10^6/uL (4.06-5.63); Red Cell Distribution Width 13.8 % (12-17); White Blood Count 7.3 10^3/uL (3.6-10.2)
[2023-08-29 22:15] LABS: Activated Partial Thrombo Time 29.9 seconds (26.0-38.0); INR 1.08 (0.83-1.13)
[2023-08-29 22:32] LABS: ALT 11 U/L (7-52); Albumin 4.1 g/dL (3.2-5.2); Albumin/Globulin Ratio 1.4 (1-3); Alkaline Phosphatase 51 U/L (35-149); Blood Urea Nitrogen 27 mg/dL (6-24); CO2 Carbon Dioxide 18 mmol/L (22-32); Calcium 9.2 mg/dL (8.6-10.3); Chloride 107 mmol/L (101-111); Cholesterol 161 mg/dL; Creatinine, Serum 1.11 mg/dL (0.67-1.17); Globulin 2.9 g/dL (2-4); Glucose 147 mg/dL (70-100); HDL Cholesterol 35.4 mg/dL; LDL Cholesterol 74 mg/dL; Sodium 138 mmol/L (135-145); Total Bilirubin 0.3 mg/dL (0.2-1.0); Triglycerides 257 mg/dL; eGFR CKD-EPI 72.3 (>60)
[2023-08-29 22:51] LABS: Anion Gap 13 mmol/L (2-16)
[2023-08-30 00:19] LABS: Urine Appearance Clear; Urine Bilirubin Negative (Negative); Urine Blood Negative (Negative); Urine Color Yellow; Urine Glucose Negative (Negative); Urine Ketones Negative (Negative); Urine Nitrite Negative (Negative); Urine Protein Negative (Negative); Urine Specific Gravity 1.058 (1.002-1.030); Urine Urobilinogen Negative (Negative)
[2023-08-30 00:22] LABS: Indirect Bilirubin 0.3 mg/dL (0.3-1.0); Total Bilirubin 0.3 mg/dL (0.2-1.0)
[2023-08-30] MEDS ORDERED: Dextrose 50% Syringe 50 ml 25 GM/50 ML SYRINGE IV PUSH PRN (01:30)
[2023-08-30 07:47] LABS: ABS Eosinophils 0.2 10^3/uL (0.0-0.5); ABS Lymphocytes 2.1 10^3/uL (1.0-4.8); ABS Monocytes 0.6 10^3/uL (0.0-1.1); ABS Neutrophils 3.2 10^3/uL (1.5-7.6); ABS Nucleated RBC 0.01 10^3/ul; Hematocrit 37.9 % (38-53); Hemoglobin 12.7 g/dL (13.2-16.3); Lymphocyte % 34.5 %; Mean Corpuscular Hemoglobin 28.9 pg (27-33); Mean Corpuscular Hgb Conc 33.5 g/dL (31-36); Mean Corpuscular Volume 86.1 fL (80-97); Mean Platelet Volume 7.8 fL (7.5-11.2); Nucleated Red Blood Cells % 0.1 %/100WBC (0.0-0.8); Platelet Count 233 10^3/uL (150-450); Red Cell Distribution Width 13.7 % (12-17); White Blood Count 6.2 10^3/uL (3.6-10.2)
[2023-08-30 08:11] LABS: Calcium 9.1 mg/dL (8.6-10.3); Creatinine, Serum 0.97 mg/dL (0.67-1.17)
[2023-08-31 06:47] LABS: ABS Eosinophils 0.2 10^3/uL (0.0-0.5); ABS Lymphocytes 2.1 10^3/uL (1.0-4.8); ABS Monocytes 0.8 10^3/uL (0.0-1.1); ABS Neutrophils 4.4 10^3/uL (1.5-7.6); ABS Nucleated RBC 0.01 10^3/ul; Eosinophil % 2.4 %; Hematocrit 38.9 % (38-53); Hemoglobin 13.1 g/dL (13.2-16.3); Lymphocyte % 28.5 %; Mean Corpuscular Hemoglobin 28.9 pg (27-33); Mean Corpuscular Hgb Conc 33.7 g/dL (31-36); Mean Corpuscular Volume 85.7 fL (80-97); Mean Platelet Volume 7.8 fL (7.5-11.2); Nucleated Red Blood Cells % 0.1 %/100WBC (0.0-0.8); Platelet Count 254 10^3/uL (150-450); Red Blood Count 4.54 10^6/uL (4.06-5.63); Red Cell Distribution Width 13.7 % (12-17); White Blood Count 7.5 10^3/uL (3.6-10.2)
[2023-08-31 07:06] LABS: Calcium 9.5 mg/dL (8.6-10.3); Creatinine, Serum 1.01 mg/dL (0.67-1.17)
[2023-09-01 06:28] LABS: ABS Eosinophils 0.2 10^3/uL (0.0-0.5); ABS Lymphocytes 2.4 10^3/uL (1.0-4.8); ABS Monocytes 0.9 10^3/uL (0.0-1.1); ABS Neutrophils 4.5 10^3/uL (1.5-7.6); ABS Nucleated RBC 0.01 10^3/ul; Eosinophil % 2.7 %; Hematocrit 39.6 % (38-53); Hemoglobin 13.6 g/dL (13.2-16.3); Mean Corpuscular Hemoglobin 29.4 pg (27-33); Mean Corpuscular Hgb Conc 34.2 g/dL (31-36); Mean Corpuscular Volume 86.1 fL (80-97); Mean Platelet Volume 7.6 fL (7.5-11.2); Nucleated Red Blood Cells % 0.1 %/100WBC (0.0-0.8); Platelet Count 261 10^3/uL (150-450); Red Cell Distribution Width 14.1 % (12-17); White Blood Count 8.1 10^3/uL (3.6-10.2)
[2023-09-01 07:51] LABS: Calcium 9.5 mg/dL (8.6-10.3); Creatinine, Serum 1.05 mg/dL (0.67-1.17); Magnesium 1.8 mg/dL (1.9-2.7); Phosphorus 3.6 mg/dL (2.5-5.0); Potassium 4.1 mmol/L (3.5-5.0); eGFR CKD-EPI 77.3 (>60)
[2023-09-01] MEDS ORDERED: Magnesium Sulfate IV 1GM/100ML 1 GM/100 ML BAG IV ONE (07:56)
[2023-09-01] MEDS ORDERED: Dextran 70/Hypromellose Tears Eye Drops 15 ml BTL (for Artificials Tears) BOTH EYES PRN (17:00)
[2023-09-02 06:31] LABS: Calcium 9.7 mg/dL (8.6-10.3); Creatinine, Serum 1.14 mg/dL (0.67-1.17); Magnesium 1.9 mg/dL (1.9-2.7); Potassium 4.5 mmol/L (3.5-5.0); eGFR CKD-EPI 70.1 (>60)
[2023-09-02] MEDS ORDERED: Lorazepam PYXIS KEY PRN (13:07)
[2023-09-02] MEDS ORDERED: LORazepam 2 mg VIAL 1 ml IV PUSH ONE (13:07)
[2023-09-03 06:34] VITALS: BP 120/80
[2023-09-03 06:56] LABS: Calcium 9.4 mg/dL (8.6-10.3); Creatinine, Serum 1.1 mg/dL (0.67-1.17); Potassium 4.6 mmol/L (3.5-5.0); eGFR CKD-EPI 73.1 (>60)
== END 2023-09-03 09:30 | disposition short-term general hospital (02) | DRG 69 ==
LOC: ED 21:06 → EDHOLD 21:06 → SUATTDRO 08-30 00:20 → MEDTELE 08-30 02:10
PROVIDERS: ADMIT Internal Medicine; ATTEND Internal Medicine